=== PATIENT | female | born 2000 | race Caucasian/White ===

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

== ENCOUNTER 2019-07-27 08:02 | Outpatient (REF) | payer MEDICAID, SELFPAY | END 2019-07-27 08:22 | LOC: LBN 08:02 | PROVIDERS: Visit Provider Internal Medicine Gastroenterology | DX: K50.80 Crohn's disease of both small and large intestine without complications (principal) | CPT/HCPCS: 83993 ==

== ENCOUNTER 2019-11-20 13:39 | Emergency (ER) | payer MEDICAID, SELFPAY ==
[2019-11-20 13:44] VITALS: BP 140/90; PULSE 104; RESP 22; TEMP 37.3; O2SAT 100
--- NOTE | 2019-11-20 14:00 | RT.EKG_ITS ---
APPROVED REPORT Exam: Resting ECG Patient Location: E HR:77 bpm ECG Measurements Heart Rate 77 AXIS MT 147 P 41 QRSd 104 QRS 50 QT 353 T 0 QTc 401 Conclusion Sinus rhythm...normal P axis, V-rate 60- 99. T wave inversion lead III. Less than 1mm ST depression in aVF. No STEMI. I have reviewed and interpreted ECG and agree with software generated interpretation.
--- NOTE | 2019-11-20 14:05 | ED.GENADUL_ITS ---
Discharge Plan Disposition Patient Disposition: HOME Condition: Stable Discharge Details Clinical Impression: Cough Primary Care Provider: Candice,Local ED Provider: Gautam Yates Home Meds and New Rx's Prescriptions: Continued Cryselle (28) 0.3-30 mg-mcg Tablet 1 tab PO DAILY RF: 0 Remicade 100 mg Recon Soln 5 mg/kg IV Q8W RF: 0 albuterol sulfate [ProAir HFA] 90 mcg/actuation Hfa Aerosol Inhaler 2 puff INHALATION Q6H PRNRF: 0 Discharge Instructions Instructions: Acute Cough (ED) Additional Instructions: At this time your work-up in the ER was unremarkable. There is no clear indication for further evaluation such as chest CTA. Please continue using albuterol as directed. Watch for new or worsening symptoms and return to the ER for any concerns. Otherwise I recommend reaching out to your primary care provider later today or tomorrow for prompt outpatient reevaluation. Medical Decision Making 19-year-old female with history of asthma, seasonal allergies, Crohn's, presents to the ER for rule out of PE per her GI specialty team. Of note her heart rate upon arrival was 104 in triage but during my evaluation was in the 70s. She does take oral contraceptive, otherwise has no additional risk factors. She appears well, nontoxic, no acute distress. Respirations of 22, she is afebrile, O2 sats 100% on room air. The any pain or swelling in her legs. Clinically rather low suspicion for PE. She is able to speak in full sentences, O2 sats 100% on room air, lungs are clear to auscultation. No indication for any breathing treatments. Very well could be viral in nature, asthma exacerbation, seasonal allergies. Low suspicion for pneumonia. Given her chief complaint and being sent here for PE rule out will initiate IV access and obtain laboratory values including d-dimer, single troponin, chest x-ray and reassess. Work-up in the ER reveals WBC of 7.24 hemoglobin 12.3 hematocrit 37.6 platelet count 284. Electrolytes unremarkable. Creatinine 0.75 with a GFR greater than 60. Troponin less than 0.05. D-dimer 246. INR 1.1. Chest x-ray read by radiology is unremarkable. After work-up was completed I discussed findings with patient. There is no clear indication to move forward with a chest CTA for further rule out of PE given her work-up here in the ER including a d-dimer that is 246. Patient is relieved and has no additional questions or concerns. We discussed that her symptoms have only been present for the past 24 hours and certainly can change or worsen and she was encouraged to return to the ER for any concerns. Otherwise she will contact her primary care provider later today or tomorrow for prompt outpatient reevaluation and use her albuterol inhaler as directed. Medical Records Medical records reviewed: Yes I reviewed the patient's medical records. Lab Data Lab results reviewed: Yes I reviewed the patient's lab results. Lab results narrative: Laboratory Tests Range/Units 11/20/19 11/20/19 11/20/19 14:24 14:24 14:24 WBC (4.4-10.8) 10^3/uL 7.24 RBC (3.93-5.22) 10^6/uL 4.11 Hgb (11.2-15.7) g/dL 12.3 Hct (36.0-46.0) % 37.6 MCV (80-95) fL 91.5 MCH (27.0-33.0) pg 29.9 MCHC (32.0-36.0) % 32.7 RDW (11.7-14.6) % 12.5 Plt Count (130-400) 10^3/uL 284 MPV (8.0-11.0) fL 10.1 Immature Gran % 0.3 Neutrophils % 65.0 Lymphocytes % 25.7 Monocytes % 6.9 Eosinophils % 1.7 Basophils % 0.4 Nucleated RBC % % 0 Absolute Neutrophils (1.2-6.7) 10^3/uL 4.71 Absolute Lymphocytes (1.2-3.4) 10^3/uL 1.86 Absolute Monocytes (0.1-0.8) 10^3/uL 0.50 Absolute Eosinophils (0.0-0.7) 10^3/uL 0.12 Absolute Basophils (0.0-0.2) 10^3/uL 0.03 PT (9.3-11.0) sec 11.0 INR (0.9-1.1) 1.1 APTT (21.0-31.4) sec 24.5 D-Dimer (<500) ng/mlFEU 246 Sodium (136-145) mmol/L 139 Potassium (3.5-5.1) mmol/L 3.6 Chloride (98-107) mmol/L 105 Carbon Dioxide (21.0-32.0) mmol/L 25.3 Anion Gap (3-11) mmol/L 8.7 BUN (7-18) mg/dL 11 Creatinine (0.55-1.02) mg/dL 0.75 Estimated GFR/1.73 m2 (mL/min/1.73m2) >= 60.00 Glucose (74-106) mg/dL 95 Calcium (8.5-10.1) mg/dL 8.8 Magnesium (1.8-2.4) mg/dL 2.2 Total Bilirubin (0.2-1.0) mg/dL 0.4 AST (15-37) U/L 17 ALT (14-59) U/L 15 Alkaline Phosphatase (46-116) U/L 41 L Troponin I (<0.06) ng/mL < 0.05 Total Protein (6.4-8.2) g/dL 7.5 Albumin (3.4-5.0) g/dL 3.7 ECG Data Attestation: I personally reviewed and interpreted this ECG (s) as follows: Interpretation: Please see official report by Dr. De Anda. Sinus rhythm, ventricular of 77. No STEMI. HPI General Mode of arrival: ambulatory . Date/Time Provider Initiated Documentation: 11/20/19 13:40 . Limitations to Documentation: no limitations . Information obtained by: patient . HPI Narrative: This is a 19-year-old female with history of Crohn's disease, asthma, seasonal allergies, presenting with 24- hour history of mild dry cough and shortness of breath. She used her inhaler yesterday which seemed to help, inhaler did not help today. She denies any recent travel, sick contacts, pain or swelling in her legs. She contacted her GI specialist who recommended going to the ER to rule out potential PE. She is on control. She denies any headache, fever, neck pain, chest pain, productive cough, abdominal pain, nausea, vomiting, numbness, tingling, weakness, change in bowel or bladder function. Denies history of DVT or PE. She states that when she was first diagnosed with her Crohn's disease she had mild shortness of breath because she was anemic and the symptoms do feel similar. The patient had a negative COVID test yesterday that she required for school Related Data Home Medications Medication Instructions Recorded Confirmed Papito (28) 1 tab PO DAILY 03/23/18 05/08/18 Remicade 5 mg/kg IV Q8W 03/23/18 05/08/18 albuterol sulfate [ProAir HFA] 2 puff INHALATION Q6H PRN 05/08/18 11/20/19 Allergies Allergy/AdvReac Type Severity Reaction Status Date / Time No Known Allergies Allergy Unverified 11/20/19 13:48 General Stated Complaint: SOB ISAAC: 3 Review of Systems Constitutional Constitutional: Denies fatigue and Denies fever(s) ENT Ears, Nose, Mouth, and Throat: Denies neck pain and Denies sore throat Cardiovascular Cardiovascular: Denies chest pain and Reports dyspnea Respiratory Respiratory: Reports cough, Reports dyspnea and Denies wheezing Gastrointestinal Gastrointestinal: Denies abdominal pain, Denies nausea and Denies vomiting Genitourinary Genitourinary: Denies dysuria Musculoskeletal Musculoskeletal: Denies back pain, Denies neck pain, Denies numbness and Denies tingling Integumentary/Breasts Skin/Breast: Denies rash Neurologic Neurologic: Denies numbness and Denies tingling Psychiatric Psychiatric: Reports anxiety Endocrine Endocrine: Denies fatigue Allergic/Immunologic Allergic/Immunologic: Denies wheezing [facility] Medical History (Updated 11/20/19 @ 15:11 by LEXIE Ace) Asthma Crohn's disease Rheumatoid arthritis Surgical History No significant past surgical history Social History Smoking/Tobacco Use Status: Never Alcohol Intake: never Drug use: Never Substance use type: does not use Do you feel safe at home: Yes Do you feel safe in your relationship?: Yes Exam Const General: cooperative, healthy appearing, comfortable, no acute distress and anxious Orientation: alert and awake [facility] Head: normal to inspection, normocephalic and atraumatic Face and sinus: normal facial exam Mouth: moist mucous membranes Teeth and gingiva: dentition normal Throat: posterior oropharynx normal Eyes Conjunctivae: conjunctivae normal Sclera: sclerae normal Neck Neck: normal visual inspection, full ROM, trachea midline and supple Resp Effort & Inspection: normal respiratory effort and able to speak in complete sentences Auscultation: clear to auscultation bilaterally Cardio Rate: regular rate Rhythm: regular rhythm GI Palpation: soft and nontender Back/Spine/Pelvis Back: No back tenderness Skin General skin exam: no rashes or lesions noted Neuro General: patient alert, patient awake, moves all extremities and no focal motor deficits Speech: speech normal Gait: normal gait Motor: muscle tone normal throughout Sensory Exam: no sensory deficits noted Extrem General: normal to inspection, full ROM, capillary refill normal, no pedal edema and no calf tenderness Psych Appearance: grossly normal Mental Status: mental status grossly normal Course Vital Signs Vital signs: Vital Signs Temperature 37.3 C 11/20/19 13:44 Pulse 104 H 11/20/19 13:44 Respiratory Rate 11/20/19 13:44 Blood Pressure 140/90 11/20/19 13:44 Pulse Oximetry 100 11/20/19 13:44 Temperature 37.3 C 11/20/19 13:44 Temperature Source Skin 11/20/19 13:44 Pulse 104 H 11/20/19 13:44 Respiratory Rate 11/20/19 13:44 Respiratory Effort Non-Labored 11/20/19 13:47 Blood Pressure 140/90 11/20/19 13:44 Blood Pressure Position Sitting 11/20/19 13:44 Pulse Oximetry 100 11/20/19 13:44 Oxygen Delivery Method Room Air 11/20/19 13:44 Oxygen Flow Rate 0 11/20/19 13:44 Pain Level 0 11/20/19 13:44
[2019-11-20 14:30] LABS: Abs Immature Grans 0.02 10^3/uL (0.0-0.06); Absolute Basophil Count 0.03 10^3/uL (0.0-0.2); Absolute Eosinophil Count 0.12 10^3/uL (0.0-0.7); Absolute Lymphocyte Count 1.86 10^3/uL (1.2-3.4); Absolute Neutrophil Count 4.71 10^3/uL (1.2-6.7); Basophils % 0.4; Eosinophils % 1.7; HCT 37.6 % (36.0-46.0); HGB 12.3 g/dL (11.2-15.7); Immature Grans % 0.3; Lymphocytes % 25.7; MCH 29.9 pg (27.0-33.0); MCHC 32.7 % (32.0-36.0); MCV 91.5 fL (80-95); MPV 10.1 fL (8.0-11.0); Monocytes % 6.9; Nucleated RBC 0 %; Platelet Count 284 10^3/uL (130-400); RBC 4.11 10^6/uL (3.93-5.22); RDW 12.5 % (11.7-14.6); RDW-SD 41.6 fL; WBC 7.24 10^3/uL (4.4-10.8)
[2019-11-20 14:44] LABS: INR 1.1 (0.9-1.1); PTT Activated 24.5 sec (21.0-31.4)
[2019-11-20 14:46] LABS: ALT 15 U/L (14-59); AST 17 U/L (15-37); Albumin 3.7 g/dL (3.4-5.0); Alkaline Phosphatase 41 U/L (46-116); Anion Gap 8.7 mmol/L (3-11); BUN 11 mg/dL (7-18); Bilirubin, Total 0.4 mg/dL (0.2-1.0); CO2 25.3 mmol/L (21.0-32.0); CREATININE 0.75 mg/dL (0.55-1.02); Calcium 8.8 mg/dL (8.5-10.1); Chloride 105 mmol/L (98-107); Glucose 95 mg/dL (74-106); Magnesium 2.2 mg/dL (1.8-2.4); Potassium 3.6 mmol/L (3.5-5.1); Sodium 139 mmol/L (136-145); Total Protein 7.5 g/dL (6.4-8.2); Troponin I < 0.05 ng/mL (<0.06)
[2019-11-20 15:00] LABS: D-Dimer 246 ng/mlFEU (<500)
--- NOTE | 2019-11-20 15:05 | DI.RAD_ITS ---
EXAM: XR CHEST 2V PA LATERAL CLINICAL HISTORY: Cough, shortness of breath. COVID negative yester TECHNIQUE: 2D digital imaging was performed. COMPARISON: No exams were available for comparison FINDINGS: MEDIASTINUM: Normal. HEART: Normal. PULMONARY VASCULATURE: Normal. LUNGS: Clear. PLEURAL SPACE: No pleural effusion or pneumothorax. BONE:Mild S-type thoracolumbar scoliosis. OTHER FINDINGS:Normal. IMPRESSION: No acute pulmonary findings. DATA REPOSITORY: RADIATION DOSE DELIVERED:
[2019-11-20 15:15] VITALS: BP 105/74; PULSE 73; RESP 16; TEMP 36.7; O2SAT 100
== END 2019-11-20 15:22 | disposition home or self-care (01) ==
PROVIDERS: Emergency Provider Physician Assistant
DX: R05 Cough (principal); R06.02 Shortness of breath; J45.909 Unspecified asthma, uncomplicated
CPT/HCPCS: 36415; 80053; 81025; 93005; 99285; 71046; 83735; 84484; 85025; 85379; 85610; 85730; 93010; 99284

== ENCOUNTER 2020-04-29 10:22 | Outpatient (REF) | payer MEDICAID, SELFPAY ==
--- NOTE | 2020-04-29 09:25 | PAPFT_PTH ---
PATIENT: Farida Graham LOC: [facility] U#:[id number] AGE/SX: 20/F ROOM: RE04/29/[address]: Balbina Michele NP : 2000 BED: DIS: 04/29/2020 SPEC #: [id number] RECD: 04/29/20 13:01 STATUS: GALDINO MENDEZ #: [id number] TING: 04/29/20 09:[address]: Balbina Michele NP DEPT: [facility] Cytology RECD BY: Luz Taveras ENTERED: 04/29/20 13:01 SP TYPE: PAPFT FIORELLA DR: Candice Local Tissues: 1 - CX/ENDOCX FOR PAP SMEARS Procedures: PAP THIN PREP/U[facility] Screening Comments: [id number]
== END 2020-04-29 10:23 | disposition home or self-care (01) ==
LOC: LBN 10:22
PROVIDERS: Visit Provider Nurse Practitioner Women's Health
DX: Z12.4 Encounter for screening for malignant neoplasm of cervix (principal)
CPT/HCPCS: 88142

== ENCOUNTER 2020-05-19 03:51 | Outpatient (CLI) | payer MEDICAID, SELFPAY ==
[2020-05-19] MEDS: Albuterol HFA 18 GM 200 PUFF INH IH (08:48)
[2020-05-19] MEDS: Inhaler, Assist Device 1 EACH MC (08:48)
--- NOTE | 2020-05-26 16:22 | W.PFT ---
Date of service: 05/19/20 Time of Service: 08:03 Pulmonary Function Test Result Interpretation Spirometry: no obstruction, no bronchodilator response Impression normal spirometry Clinical Correlation therefore is recommended.
== END 2020-05-19 03:52 | disposition home or self-care (01) ==
LOC: RT 03:51
PROVIDERS: Visit Provider Physician Assistant
DX: R06.09 Other forms of dyspnea (principal); J45.909 Unspecified asthma, uncomplicated
CPT/HCPCS: 94060

== ENCOUNTER 2021-01-02 01:38 | Emergency (ER) | payer MEDICAID, SELFPAY ==
[2021-01-02 01:43] VITALS: BP 122/80; PULSE 110; RESP 18; TEMP 36.7; O2SAT 98
--- NOTE | 2021-01-02 01:43 | ED.GENADUL_ITS ---
Discharge Plan Disposition Patient Disposition: HOME Condition: Good Discharge Details Clinical Impression: COVID-19 ED Provider: Dax Costa Mustang Meds and New Rx's Prescriptions: Continued fexofenadine [Chelsey Allergy] 60 mg tablet 60 mg PO Q12H RF: 0 montelukast 10 mg tablet 10 mg PO DAILY RF: 0 Cryselle (28) 0.3-30 mg-mcg tablet 1 tab PO DAILY RF: 0 cholecalciferol (vitamin D3) 25 mcg (1,000 unit) capsule 25 mcg PO DAILY RF: 0 Remicade 100 mg recon soln 500 mg IV ONCE RF: 0 Discharge Instructions Instructions: Ondansetron (By mouth), COVID-19 (Coronavirus Disease 2019) (ED) Additional Instructions: You may use the provided ondansetron as needed for nausea/vomiting. Be sure to rest and drink plenty of fluid. Isolate for the required 10 days. Return to ED for chest pain, shortness of breath, persistent vomiting, worsening abdominal pain, confusion, other concerns. Discussed with your provider when you should receive next dose of Remicade. Medical Decision Making Young female who tested Covid positive despite vaccination presenting with concern due to nausea and vomiting. I do not think it is related to her Crohn's but more likely related to her infection. She is mildly tachycardic but otherwise looks well with normal saturations. She does qualify for MAB therapy given her treatment with Remicade for her Crohn's. We discussed this and she would like to receive the therapy. As the weekend is coming up, we will go ahead and treat in the ED. We will also give fluids, Zofran and check a BMP. test negative. BMP normal. Nausea better after Zofran. A little flushing monoclonal antibody. It was stopped and restarted at a slower rate. She did fine with this. We have held her 40-hour with no reaction. She will be discharged home with Zofran prepack. Continue to isolate for the required 10 days. Rest and drink plenty of fluids. Return to ED if any chest pain, shortness of breath, persistent vomiting, worsening abdominal pain, confusion, other concerns. Lab Data Lab results reviewed: Yes I reviewed the patient's lab results. HPI General Mode of arrival: ambulatory . Date/Time Provider Initiated Documentation: 01/02/21 01:41 . Limitations to Documentation: no limitations . Information obtained by: patient and RN notes reviewed . HPI Narrative: Patient presents to ED with chief complaint of vomiting and diarrhea. Patient developed URI type symptoms on Tuesday the . She tested positive for Covid despite being immunized. She has nasal congestion, cough. Today developed vomiting and diarrhea. This concerned her because she does have history of Crohn's disease. There has been no bloody diarrhea. She is not having significant abdominal pain. She is on Remicade. She denies fever, shortness of breath, chest pain. She gets anxious easily because of the persistent vomiting and diarrhea came in for evaluation. Related Data Home Medications Medication Instructions Recorded Confirmed cholecalciferol (vitamin D3) 25 25 mcg PO DAILY 04/29/20 01/02/21 mcg (1,000 unit) capsule fexofenadine 60 mg tablet 60 mg PO Q12H 04/29/20 01/02/21 infliximab 100 mg intravenous 500 mg IV ONCE ea 04/29/20 01/02/21 solution montelukast 10 mg tablet 10 mg PO DAILY 04/29/20 01/02/21 norgestrel 0.3 mg-ethinyl 1 tab PO DAILY 04/29/20 01/02/21 estradiol 30 mcg tablet Allergies Allergy/AdvReac Type Severity Reaction Status Date / Time No Known Allergies Allergy Verified 04/29/20 09:07 Review of Systems Narrative: As documented in HPI otherwise negative as below. Const: no fever, chills, weakness Resp: no SOB, pleuritic pain CV: no CP, diaphoresis, edema, syncope GI: no persistent abdominal pain Neuro: no headache, numbness, focal weakness, confusion PFSH Medical History Asthma Crohn's disease well controlled with remicade Depression History of blood transfusion 2016: 2' GI bleed which led to crohn's diagnosis Oral contraceptive use Surgical History History of colonoscopy History of endoscopy Social History Smoking/Tobacco Use Status: Never Smoking risk assessment performed?: Yes Alcohol Intake: never Drug use: Never Substance use type: does not use Do you feel safe at home: Yes Do you feel safe in your relationship?: Yes Female Reproductive History Menstrual Duration of menses: 6-7 days control method: pills History History 0 Para Hx # Term Pregnancies Multiple births Hx # Pregnancies Ectopic pregnancies AB induced Hx Number of Living Children AB spontaneous Exam Narrative Exam Narrative: Const: WDWN female in NAD. HEENT: NC/AT. Normal facial exam. Eyes: Normal conjunctiva and sclera. Neck: Supple. Trachea midline. Lungs: Normal respiratory effort. Lungs are clear. Cor: RRR without murmur/gallop. Good radial pulses. GI: Soft. NT/ND. No guarding or rebound. Neuro: A+O x 3. Normal speech, mentation, gait. Cranial nerves II - XII grossly intact. No gross motor or sensory deficit. Ext: No C/C/E. Skin: Warm and dry without rash.
[2021-01-02 02:38] VITALS: BP 120/80; PULSE 118; RESP 18; TEMP 36.7; O2SAT 98
[2021-01-02 02:41] LABS: Anion Gap 8.3 mmol/L (3-11); BUN 7 mg/dL (7-18); CO2 27.7 mmol/L (21.0-32.0); CREATININE 0.8 mg/dL (0.55-1.02); Chloride 103 mmol/L (98-107); Glucose 98 mg/dL (74-106); Potassium 3.9 mmol/L (3.5-5.1); Sodium 139 mmol/L (136-145)
[2021-01-02] MEDS: Ondansetron 4 MG/2 ML VIAL IVP (03:03)
--- NOTE | 2021-01-02 03:13 | SUR.PHASEII ---
pot rate decreased to 155 ml an hour from 310ml
--- NOTE | 2021-01-02 03:48 | SUR.PHASEI ---
pt monoclonial infusion completed [id number]
[2021-01-02 03:49] VITALS: BP 120/69; PULSE 99; RESP 18; TEMP 36.8; O2SAT 99
[2021-01-02] MEDS: Normal Saline 1,000 ML 1000 ML IV (04:00)
== END 2021-01-02 05:15 | disposition home or self-care (01) ==
LOC: ER 05:18
PROVIDERS: Emergency Provider Emergency Medicine
DX: U07.1 COVID-19 (principal); R05.1 Acute cough; R09.81 Nasal congestion; R11.2 Nausea with vomiting, unspecified
CPT/HCPCS: 36415; 80048; 81025; 96361; 96365; 96375; 99284; J2405

== ENCOUNTER 2021-01-31 12:59 | Outpatient (REF) | payer MEDICAID, SELFPAY ==
[2021-02-04 18:39] LABS: Calprotectin 26.7 mcg/g
== END 2021-01-31 13:00 | disposition home or self-care (01) ==
LOC: LBN 12:59
PROVIDERS: Visit Provider Internal Medicine Gastroenterology
DX: K50.80 Crohn's disease of both small and large intestine without complications (principal)
CPT/HCPCS: 83993

== ENCOUNTER 2021-03-05 16:09 | Outpatient (REF) | payer MEDICAID, SELFPAY ==
[2021-03-06 15:44] LABS: GC Result Negative (Negative)
[2021-03-06 16:25] LABS: Chlamydia Result Positive (Negative)
== END 2021-03-05 16:10 | disposition home or self-care (01) ==
LOC: LBN 16:09
PROVIDERS: Visit Provider Obstetrics & Gynecology
DX: R30.0 Dysuria (principal)
CPT/HCPCS: 87491; 87591

== ENCOUNTER 2021-05-15 20:28 | Outpatient (CLI) | payer MEDICAID, SELFPAY ==
[2021-05-15 16:27] LABS: Abs Immature Grans 0.02 10^3/uL (0.0-0.06); Absolute Basophil Count 0.05 10^3/uL (0.0-0.2); Absolute Eosinophil Count 0.26 10^3/uL (0.0-0.7); Absolute Lymphocyte Count 3.06 10^3/uL (1.2-3.4); Absolute Monocyte Count 0.81 10^3/uL (0.1-0.8); Absolute Neutrophil Count 5.02 10^3/uL (1.2-6.7); Basophils % 0.5; Eosinophils % 2.8; HCT 41.9 % (36.0-46.0); HGB 13.6 g/dL (11.2-15.7); Immature Grans % 0.2; Lymphocytes % 33.2; MCH 29.2 pg (27.0-33.0); MCHC 32.5 % (32.0-36.0); MCV 90.1 fL (80-95); MPV 10.1 fL (8.0-11.0); Monocytes % 8.8; Neutrophils % 54.5; Nucleated RBC 0 %; Platelet Count 327 10^3/uL (130-400); RBC 4.65 10^6/uL (3.93-5.22); RDW 12.7 % (11.7-14.6); RDW-SD 42.1 fL; WBC 9.22 10^3/uL (4.4-10.8)
[2021-05-15 16:39] LABS: ALT 19 U/L (14-59); AST 16 U/L (15-37); Alkaline Phosphatase 53 U/L (46-116); Bilirubin, Direct < 0.1 mg/dL (0.0-0.2); Bilirubin, Total 0.2 mg/dL (0.2-1.0); C-Reactive Protein 0.19 mg/dL (0.0-0.3); Total Protein 8.4 g/dL (6.4-8.2)
== END 2021-05-15 20:29 | disposition home or self-care (01) ==
LOC: LBO 20:30
PROVIDERS: PCP Internal Medicine Gastroenterology; Visit Provider Family Medicine
DX: K50.80 Crohn's disease of both small and large intestine without complications (principal)
CPT/HCPCS: 36415; 80076; 85025; 86140

== ENCOUNTER 2021-05-18 08:31 | Outpatient (REF) | payer MEDICAID, SELFPAY ==
[2021-05-21 15:09] LABS: Calprotectin 81.9 mcg/g
== END 2021-05-18 08:32 | disposition home or self-care (01) ==
LOC: LBN 08:31
PROVIDERS: PCP Internal Medicine Gastroenterology; Visit Provider Internal Medicine Gastroenterology
DX: K50.80 Crohn's disease of both small and large intestine without complications (principal)
CPT/HCPCS: 83993

== ENCOUNTER 2021-05-20 02:28 | Outpatient (CLI) | payer MEDICAID, SELFPAY | END 2021-05-20 02:29 | disposition home or self-care (01) | LOC: LBO 02:28 | PROVIDERS: PCP Internal Medicine Gastroenterology; Visit Provider Internal Medicine Gastroenterology ==

== ENCOUNTER 2021-06-17 02:56 | Outpatient (CLI) | payer MEDICAID, SELFPAY ==
[2021-06-17 11:35] LABS: Abs Immature Grans 0.03 10^3/uL (0.0-0.06); Absolute Basophil Count 0.06 10^3/uL (0.0-0.2); Absolute Eosinophil Count 0.39 10^3/uL (0.0-0.7); Absolute Lymphocyte Count 2.07 10^3/uL (1.2-3.4); Absolute Monocyte Count 0.75 10^3/uL (0.1-0.8); Absolute Neutrophil Count 4.93 10^3/uL (1.2-6.7); Basophils % 0.7; Eosinophils % 4.7; HGB 13.1 g/dL (11.2-15.7); Immature Grans % 0.4; Lymphocytes % 25.2; MCH 29.6 pg (27.0-33.0); MCV 92.8 fL (80-95); MPV 9.6 fL (8.0-11.0); Monocytes % 9.1; Neutrophils % 59.9; Platelet Count 304 10^3/uL (130-400); RBC 4.42 10^6/uL (3.93-5.22); RDW 12.6 % (11.7-14.6); RDW-SD 43.5 fL; WBC 8.23 10^3/uL (4.4-10.8)
[2021-06-17 12:38] LABS: ALT 19 U/L (14-59); AST 17 U/L (15-37); Alkaline Phosphatase 65 U/L (46-116); Bilirubin, Direct 0.1 mg/dL (0.0-0.2); Bilirubin, Total 0.3 mg/dL (0.2-1.0); C-Reactive Protein 0.15 mg/dL (0.0-0.3); Total Protein 7.8 g/dL (6.4-8.2)
== END 2021-06-17 02:57 | disposition home or self-care (01) ==
LOC: LBO 02:56
PROVIDERS: PCP Internal Medicine Gastroenterology; Visit Provider Internal Medicine Gastroenterology
DX: K50.80 Crohn's disease of both small and large intestine without complications (principal)
CPT/HCPCS: 36415; 80076; 85025; 86140

== ENCOUNTER 2021-06-18 11:13 | Outpatient (CLI) | payer MEDICAID, SELFPAY ==
[2021-06-18 15:04] LABS: Abs Immature Grans 0.02 10^3/uL (0.0-0.06); Absolute Basophil Count 0.04 10^3/uL (0.0-0.2); Absolute Eosinophil Count 0.24 10^3/uL (0.0-0.7); Absolute Lymphocyte Count 2.37 10^3/uL (1.2-3.4); Absolute Monocyte Count 0.64 10^3/uL (0.1-0.8); Absolute Neutrophil Count 4.48 10^3/uL (1.2-6.7); Basophils % 0.5; Eosinophils % 3.1; HCT 40.6 % (36.0-46.0); HGB 12.7 g/dL (11.2-15.7); Immature Grans % 0.3; Lymphocytes % 30.4; MCHC 31.3 % (32.0-36.0); MCV 92.7 fL (80-95); MPV 9.7 fL (8.0-11.0); Monocytes % 8.2; Neutrophils % 57.5; Platelet Count 304 10^3/uL (130-400); RBC 4.38 10^6/uL (3.93-5.22); RDW 12.5 % (11.7-14.6); RDW-SD 42.9 fL; WBC 7.79 10^3/uL (4.4-10.8)
[2021-06-23 11:15] LABS: SS-B (La) Ab, IgG 2.5 Units (<20.0)
== END 2021-06-18 11:14 | disposition home or self-care (01) ==
LOC: LBO 11:13
PROVIDERS: PCP Internal Medicine Gastroenterology; Visit Provider Obstetrics & Gynecology
DX: K50.90 Crohn's disease, unspecified, without complications (principal); M06.9 Rheumatoid arthritis, unspecified
CPT/HCPCS: 36415; 85025; 86235

== ENCOUNTER 2021-07-15 02:21 | Outpatient (CLI) | payer MEDICAID, SELFPAY ==
[2021-07-15 12:13] LABS: Abs Immature Grans 0.03 10^3/uL (0.0-0.06); Absolute Basophil Count 0.05 10^3/uL (0.0-0.2); Absolute Eosinophil Count 0.44 10^3/uL (0.0-0.7); Absolute Lymphocyte Count 2.27 10^3/uL (1.2-3.4); Absolute Monocyte Count 0.89 10^3/uL (0.1-0.8); Absolute Neutrophil Count 4.87 10^3/uL (1.2-6.7); Basophils % 0.6; Eosinophils % 5.1; HCT 38.4 % (36.0-46.0); HGB 12.3 g/dL (11.2-15.7); Immature Grans % 0.4; Lymphocytes % 26.5; MCH 29.3 pg (27.0-33.0); MCV 91 fL (80-95); MPV 9.8 fL (8.0-11.0); Monocytes % 10.4; Platelet Count 291 10^3/uL (130-400); RDW 12.7 % (11.7-14.6); RDW-SD 42.3 fL; WBC 8.55 10^3/uL (4.4-10.8)
[2021-07-15 13:24] LABS: ALT 31 U/L (14-59); AST 20 U/L (15-37); Alkaline Phosphatase 56 U/L (46-116); Bilirubin, Direct 0.1 mg/dL (0.0-0.2); Bilirubin, Total 0.4 mg/dL (0.2-1.0); C-Reactive Protein 0.17 mg/dL (0.0-0.3); Total Protein 7.8 g/dL (6.4-8.2)
== END 2021-07-15 02:22 | disposition home or self-care (01) ==
LOC: LBO 02:21
PROVIDERS: PCP Internal Medicine Gastroenterology; Visit Provider Internal Medicine Gastroenterology
DX: K50.80 Crohn's disease of both small and large intestine without complications (principal)
CPT/HCPCS: 36415; 80076; 85025; 86140

== ENCOUNTER 2021-07-31 16:40 | Outpatient (REF) | payer MEDICAID, SELFPAY ==
[2021-08-03 14:56] LABS: Chlamydia Result Negative (Negative); GC Result Negative (Negative)
== END 2021-07-31 16:41 | disposition home or self-care (01) ==
LOC: LBN 16:40
PROVIDERS: PCP Internal Medicine Gastroenterology; Visit Provider Obstetrics & Gynecology Gynecology
DX: R30.9 Painful micturition, unspecified (principal); N94.89 Other specified conditions associated with female genital organs and menstrual cycle
CPT/HCPCS: 87491; 87591; 87086

== ENCOUNTER 2021-08-12 02:20 | Outpatient (CLI) | payer MEDICAID, SELFPAY ==
[2021-08-12 11:50] LABS: Abs Immature Grans 0.02 10^3/uL (0.0-0.06); Absolute Basophil Count 0.03 10^3/uL (0.0-0.2); Absolute Eosinophil Count 0.47 10^3/uL (0.0-0.7); Absolute Lymphocyte Count 1.92 10^3/uL (1.2-3.4); Absolute Monocyte Count 0.75 10^3/uL (0.1-0.8); Absolute Neutrophil Count 4.41 10^3/uL (1.2-6.7); Basophils % 0.4; Eosinophils % 6.2; HCT 34.6 % (36.0-46.0); HGB 11.5 g/dL (11.2-15.7); Immature Grans % 0.3; Lymphocytes % 25.3; MCH 29.9 pg (27.0-33.0); MCHC 33.2 % (32.0-36.0); MCV 90 fL (80-95); MPV 9.7 fL (8.0-11.0); Monocytes % 9.9; Neutrophils % 57.9; Platelet Count 253 10^3/uL (130-400); RBC 3.84 10^6/uL (3.93-5.22); RDW 12.5 % (11.7-14.6); RDW-SD 41.5 fL
[2021-08-12 12:18] LABS: ALT 38 U/L (14-59); AST 22 U/L (15-37); Albumin 3.7 g/dL (3.4-5.0); Alkaline Phosphatase 47 U/L (46-116); Bilirubin, Direct 0.1 mg/dL (0.0-0.2); Bilirubin, Total 0.3 mg/dL (0.2-1.0); C-Reactive Protein 0.34 mg/dL (0.0-0.3); Total Protein 7.4 g/dL (6.4-8.2)
== END 2021-08-12 02:21 | disposition home or self-care (01) ==
LOC: LBO 02:20
PROVIDERS: PCP Nurse Practitioner; Visit Provider Internal Medicine Gastroenterology
DX: K50.80 Crohn's disease of both small and large intestine without complications (principal)
CPT/HCPCS: 36415; 80076; 85025; 86140

== ENCOUNTER 2021-08-15 14:07 | Emergency (ER) | payer MEDICAID, SELFPAY ==
[2021-08-15 14:19] VITALS: BP 121/74; PULSE 97; RESP 16; TEMP 37.1; O2SAT 100
--- NOTE | 2021-08-15 15:06 | ED.GENADUL_ITS ---
Discharge Plan Disposition Patient Disposition: HOME Condition: Stable Discharge Details Clinical Impression: Threatened miscarriage in early Primary Care Provider: Carrie Trejo ED Provider: Serafin Rice Home Meds and New Rx's Prescriptions: Continued fexofenadine [Chelsey Allergy] 60 mg tablet 60 mg PO Q12H cholecalciferol (vitamin D3) 25 mcg (1,000 unit) capsule 25 mcg PO DAILY Remicade 100 mg recon soln 500 mg IV ONCE folic acid 1 mg tablet 4 mg PO DAILY Qty: 240 3RF prenat.vits,sophia,ojd-qgih-hjnyw Tablet 1 tab PO DAILY Qty: 90 3RF albuterol sulfate [ProAir HFA] 90 mcg/actuation Hfa Aerosol Inhaler 2 puff INHALATION Q6H PRN No Action loratadine [Allergy Relief (loratadine)] 10 mg tablet 10 mg PO DAILY sertraline 100 mg tablet 100 mg PO DAILY Discharge Instructions Instructions: Threatened Miscarriage (ED) Additional Instructions: Please refrain from sexual activity and no exertional activities until cleared by your OB. Please contact your OB to arrange follow-up. Return to the ER immediately for any worsening or new concerning symptoms. For future reference, your blood type is O+. [facility]: [facility] [Provider Group] Discharge Data Discharge Date/Time-TO BE ENTERED AT DEPARTURE: 08/15/21 17:30 Medical Decision Making 21-year-old at 6 weeks 5 days, had IUP on pelvic ultrasound earlier this week, here with spotting this morning postcoitally, also with some mild cramping in route to the hospital. No continued bleeding.. Bedside transabdominal pelvic POCUS was performed by me. No free fluid in the pelvis. Gestational sac with IUP is present. Question flicker heartbeat. Consider need for RhoGAM. Type and screen performed and patient is O+. Recommended she penetrate outpatient follow-up with obstetrics. I recommended she refrain from sexual activity until cleared. I called and spoke with Dr. Huertas, on-call OB, discussed ED presentation course and she agrees with treatment plan. HPI General Mode of arrival: ambulatory . Date/Time Provider Initiated Documentation: 08/15/21 14:28 . Limitations to Documentation: no limitations . Information obtained by: patient . HPI Narrative: 21-year-old at 6 weeks 5 days by ultrasound earlier this week, here with vaginal spotting this morning. Patient notes that she had sexual intercourse with her significant other this morning and then noticed spotting in her underwear. No continuous bleeding. Symptoms mild with no modifiers. She subsequently has gone urination and did not notice any blood. She does she may have had some subtle abdominal cramping in route to the hospital. Patient denies trauma. She is on vitamin. Related Data Home Medications Medication Instructions Recorded Confirmed albuterol sulfate 90 mcg/actuation 2 puff inhalation Q6H PRN 05/08/18 08/18/21 aerosol inhaler (ProAir HFA) cholecalciferol (vitamin D3) 25 25 mcg PO DAILY 04/29/20 08/18/21 mcg (1,000 unit) capsule fexofenadine 60 mg tablet (Chelsey 60 mg PO Q12H 04/29/20 08/15/21 Allergy) infliximab 100 mg intravenous 500 mg IV ONCE 04/29/20 08/18/21 solution (Remicade) folic acid 1 mg tablet 4 mg PO DAILY #240 tabs 06/17/21 08/18/21 prenat.vits,sophia,bdx-sjac-pqwlk 1 tab PO DAILY #90 tabs 06/17/21 08/18/21 sertraline 100 mg tablet 100 mg PO DAILY 08/17/21 08/18/21 loratadine 10 mg tablet (Allergy 10 mg PO DAILY 08/18/21 08/18/21 Relief (loratadine)) Previous Rx's Medication Instructions Recorded folic acid 1 mg tablet 4 mg PO DAILY #240 tabs 06/17/21 prenat.vits,sophia,dwc-qthx-qmaku 1 tab PO DAILY #90 tabs 06/17/21 Allergies Allergy/AdvReac Type Severity Reaction Status Date / Time pineapple Allergy Intermediate mouth Unverified 08/18/21 14:58 tingling General Stated Complaint: JV [employer]ALL [employer]ACH ISAAC: 3 Review of Systems All systems reviewed & are unremarkable except as noted in HPI and below Constitutional Constitutional: Denies fever(s) Gastrointestinal Gastrointestinal: Denies abdominal pain Genitourinary Genitourinary: Reports as per HPI PFSH All Active Problems (Updated 08/18/21 @ 15:02 by Carrie Trejo NP) Rheumatoid arthritis (Chronic) Threatened miscarriage in early (Acute) Positive test (Acute) Vaginal burning (Acute) Delayed menses (Acute) Crohn's disease (Chronic) well controlled with remicade Depression (Chronic) Asthma (Chronic) History of blood transfusion (Acute) 2016: 2' GI bleed which led to crohn's diagnosis COVID-19 (Acute) Chlamydia infection (Acute) Urinary pain (Acute) Asthma (Chronic) Allergic rhinitis due to allergen (Acute) Post-nasal drip (Acute) Chronic rhinitis (Acute) Medical History Crohn's disease Rheumatoid arthritis Surgical History History of colonoscopy History of endoscopy No significant past surgical history Family History (Updated 08/18/21 @ 15:21 by Carrie Trejo NP) Maternal Grandmother Cancer Pancreatic Father Diabetes Maternal Grandfather Heart disease Paternal Grandmother No problems noted. Other Crohn's disease Social History (Updated 08/17/21 @ 09:35 by Marilin Dorantes LPN) Smoking/Tobacco Use Status: Never Smoking risk assessment performed?: Yes Alcohol Intake: current Alcohol Intake frequency: a few times a week Drug use: Occasionally Substance use type: marijuana Adopted: No Caregiver/Support person: No Foster care: No Household members: significant other Housing: apartment Number of Children: 0 Communication Needs: None Education Level: college Details: bachelor's degree Do you need help understanding health information?: Never current occupation: [employer] Pets and animals: Yes Pets and animals: cat(s) and hamster(s) Sexually active: Yes Do you think of yourself as: straight/heterosexual Current gender identity: female What is your relationship status?: living with partner How often do you talk on the phone with friends or family?: three or more times per week How often do you get together with friends or relatives?: once per week Panel score (0-1 are the most socially isolated patients): 2 What type of physical activity do you participate in: walking Duration: 30-45 minutes/day Frequency: 1-2 times per week Cesia/Confucianism: None Special cesia needs: No Seatbelt use: sometimes Helmet use: Yes Helmet use: sometimes Drive intox 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 Do you feel safe at home: Yes Do you feel safe in your relationship?: Yes Female Reproductive History Menstrual Duration of menses: 6-7 days control method: pills History History 1 Para Hx # Term Pregnancies Multiple births Hx # Pregnancies Ectopic pregnancies AB induced Hx Number of Living Children AB spontaneous Exam Const General: cooperative and no acute distress HENMT Mouth: moist mucous membranes Eyes Conjunctivae: normal conjunctivae Sclera: normal sclerae Neck Neck: trachea midline and supple Resp Auscultation: clear to auscultation bilaterally, no rales, no rhonchi and no wheezes Cardio Rate: regular rate and not tachycardic Rhythm: regular rhythm GI Palpation: soft, not firm, no guarding, no masses, not rigid and nontender Skin General skin exam: no rashes or lesions noted Neuro General: patient alert and patient awake Extrem General: no edema Psych Appearance: grossly normal Mental Status: mental status grossly normal Course Vital Signs Vital signs: Vital Signs Temperature 37.1 C 08/15/21 14:19 Pulse 97 H 08/15/21 14:19 Respiratory Rate 16 08/15/21 14:19 Blood Pressure 121/74 08/15/21 14:19 Pulse Oximetry 100 08/15/21 14:19 Temperature 37.1 C 08/15/21 14:19 Temperature Source Skin 08/15/21 14:19 Pulse 97 H 08/15/21 14:19 Respiratory Rate 16 08/15/21 14:19 Respiratory Effort Non-Labored 08/15/21 14:35 Blood Pressure 121/74 08/15/21 14:19 Blood Pressure Position Sitting 08/15/21 14:19 Pulse Oximetry 100 08/15/21 14:19 Oxygen Delivery Method Room Air 08/15/21 14:19 Oxygen Flow Rate 0 08/15/21 14:19 Pain Level 0 08/15/21 14:35
[2021-08-15 16:36] VITALS: BP 114/71; PULSE 87; RESP 14; TEMP 37.1; O2SAT 100
[2021-08-15 17:30] VITALS: BP 114/71; PULSE 87; RESP 14; TEMP 37.1; O2SAT 100
== END 2021-08-15 17:30 | disposition home or self-care (01) ==
PROVIDERS: Emergency Provider Student in an Organized Health Care Education/Training Program; PCP Nurse Practitioner
DX: O20.0 Threatened abortion (principal); Z3A.01 Less than 8 weeks gestation of pregnancy
CPT/HCPCS: 86850; 86900; 86901; 99284; 99283

== ENCOUNTER 2021-08-20 11:58 | Outpatient (REF) | payer MEDICAID, SELFPAY ==
[2021-08-25 15:53] LABS: Calprotectin 56.4 mcg/g
== END 2021-08-20 11:59 | disposition home or self-care (01) ==
LOC: LBN 11:58
PROVIDERS: PCP Nurse Practitioner; Visit Provider Internal Medicine Gastroenterology
DX: K50.80 Crohn's disease of both small and large intestine without complications (principal)
CPT/HCPCS: 83993

== ENCOUNTER 2021-08-25 14:59 | Outpatient (REF) | payer MEDICAID, SELFPAY ==
[2021-08-25 14:20] LABS: Source Nasal/Nares
[2021-08-25 15:27] LABS: COVID-19 PCR Negative (Negative)
== END 2021-08-25 15:00 | disposition home or self-care (01) ==
LOC: LBN 14:59
PROVIDERS: PCP Nurse Practitioner; Visit Provider Obstetrics & Gynecology Gynecology
DX: Z20.822 Contact with and (suspected) exposure to COVID-19 (principal); Z01.818 Encounter for other preprocedural examination
CPT/HCPCS: 87635

== ENCOUNTER 2021-08-26 10:18 | Day surgery (SDC) | payer MEDICAID, SELFPAY ==
[2021-08-26 10:20] VITALS: BP 121/89; PULSE 105; RESP 18; TEMP 36.6; O2SAT 100
--- NOTE | 2021-08-26 10:35 | W.PM.HP.N ---
Date of service: 08/25/21 Time of Service: 10:35 Assessment and Plan Assessment and plan (1) Missed : Status: Acute Assessment and plan: Informed consent was obtained. Patient was counseled regarding the risk of puncture of uterus with subsequent bleeding and need for possible laparotomy;the risk of infection and injury to surrounding structures including bowel, bladder, and blood vessels. Her questions were answered. She was instructed to be n.p.o. after midnight. We will obtain preop labs prior to surgery. Patient is Rh+. History of Present Illness History of Present Illness Chief Complaint: Missed . Narrative: Patient is a 21yo G1 female diagnosed by transvaginal office ultrasound with missed AB at approximately 8 weeks. She had a positive urine test approximately 4 weeks ago.? She did not know that she is at that point.? Her last menstrual period after coming off of oral contraceptives was 06/16/2021.? She had an initial OB ultrasound that showed early gestation IUP. She developed mild cramping with episodes of light brown vaginal spotting last week and yesterday. Both transabdominal and transvaginal ultrasound were performed. Transvaginal ultrasound showed an enlarged yolk sac within the gestational sac no evidence of a pole or cardiac activity. The uterus appears normal as does the adnexa there is no evidence of free pelvic fluid. Patient and her partner the SAB and treatment options were discussed. I recommended a D&C based on patient's estimated stational age and the unsure nature of when she would pass the tissue. She is agreeable to the plan. Review of Systems All systems reviewed & are unremarkable except as noted in HPI and below Constitutional Constitutional: Denies fever(s) Cardiovascular Cardiovascular: Reports system reviewed and no additional complaints, except as documented Respiratory Respiratory: Reports system reviewed and no additional complaints, except as documented Gastrointestinal Gastrointestinal: Reports system reviewed and no additional complaints, except as documented (Crohn's symptoms are currently stable) Genitourinary Genitourinary: Reports abnormal vaginal bleeding and Reports other (Mild uterine cramping) Neurologic Neurologic: Reports system reviewed and no additional complaints, except as documented Psychiatric Psychiatric: Reports system reviewed and no additional complaints, except as documented PFSH All Active Problems (Updated 08/26/21 @ 10:45 by Cass Garrett MD) Missed (Acute) Pre-op exam (Acute) Rheumatoid arthritis (Chronic) Positive test (Acute) Vaginal burning (Acute) Delayed menses (Acute) Crohn's disease (Chronic) well controlled with remicade Depression (Chronic) Asthma (Chronic) History of blood transfusion (Acute) 2016: 2' GI bleed which led to crohn's diagnosis COVID-19 (Acute) Chlamydia infection (Acute) Urinary pain (Acute) Asthma (Chronic) Allergic rhinitis due to allergen (Acute) Post-nasal drip (Acute) Chronic rhinitis (Acute) Medical History Crohn's disease Rheumatoid arthritis Surgical History History of colonoscopy History of endoscopy No significant past surgical history Family History (Updated 08/18/21 @ 15:21 by Carrie Trejo NP) Maternal Grandmother Cancer Pancreatic Father Diabetes Maternal Grandfather Heart disease Paternal Grandmother No problems noted. Other Crohn's disease Social History (Updated 08/17/21 @ 09:35 by Marilin Dorantes LPN) Smoking/Tobacco Use Status: Former Tobacco Use Smoking risk assessment performed?: Yes Alcohol Intake: former Drug use: Never Substance use type: does not use, former substance user and marijuana Details: Stopped using marijuana when she found out she was prenant same as vaping Adopted: No Caregiver/Support person: No Foster care: No Household members: significant other Housing: apartment Number of Children: 0 Communication Needs: None Education Level: college Details: bachelor's degree Do you need help understanding health information?: Never 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 Pets and animals: Yes Pets and animals: cat(s) and hamster(s) Sexually active: Yes Do you think of yourself as: straight/heterosexual Current gender identity: female What is your relationship status?: living with partner How often do you talk on the phone with friends or family?: three or more times per week How often do you get together with friends or relatives?: once per week Panel score (0-1 are the most socially isolated patients): 2 What type of physical activity do you participate in: walking Duration: 30-45 minutes/day Frequency: 1-2 times per week Cesia/Restorationism: None Special cesia needs: No Seatbelt use: sometimes Helmet use: Yes Helmet use: sometimes Drive intox 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 driver engineer: No Do you feel safe at home: Yes Do you feel safe in your relationship?: Yes Female Reproductive History Menstrual Duration of menses: 6-7 days control method: pills History History 1 Para 0 Hx # Term Pregnancies 0 Multiple births 0 Hx # Pregnancies 0 Ectopic pregnancies 0 AB induced 0 Hx Number of Living Children 0 AB spontaneous 0 Meds Allergies and Home Medications Allergies Allergy/AdvReac Type Severity Reaction Status Date / Time pineapple Allergy Intermediate mouth Unverified 08/26/21 09:30 tingling Home Medications Medication Instructions Recorded Confirmed Type albuterol sulfate 90 mcg/actuation 2 puff inhalation Q6H PRN 05/08/18 08/25/21 History aerosol inhaler (ProAir HFA) cholecalciferol (vitamin D3) 25 25 mcg PO DAILY 04/29/20 08/26/21 History mcg (1,000 unit) capsule fexofenadine 60 mg tablet (Chelsey 60 mg PO Q12H 04/29/20 08/26/21 History Allergy) infliximab 100 mg intravenous 500 mg IV ONCE 04/29/20 08/26/21 History solution (Remicade) folic acid 1 mg tablet 4 mg PO DAILY #240 tabs 06/17/21 08/26/21 Rx prenat.vits,sophia,jkf-cbxr-xeapp 1 tab PO DAILY #90 tabs 06/17/21 08/26/21 Rx sertraline 100 mg tablet 100 mg PO DAILY 08/17/21 08/26/21 History loratadine 10 mg tablet (Allergy 10 mg PO DAILY 08/18/21 08/26/21 History Relief (loratadine)) Exam Const General: no acute distress (Tearful regarding the events of today) Nutritional Appearance: average body habitus Orientation: alert, awake and oriented x3 Neck Neck: normal visual inspection Resp Effort & Inspection: normal respiratory effort Auscultation: clear to auscultation bilaterally Cardio Rate: regular rate Rhythm: regular rhythm General: deferred Skin General skin exam: no rashes or lesions noted Extrem General: normal to inspection and full ROM Psych Appearance: grossly normal Mental Status: mental status grossly normal (Tearful. Asking appropriate questions regarding the loss.)
[2021-08-26] MEDS: Lactated Ringers 1,000 ML 125 ML IV (10:48)
[2021-08-26 10:49] LABS: HCT 37.9 % (36.0-46.0); HGB 12.4 g/dL (11.2-15.7); MCH 29.2 pg (27.0-33.0); MCHC 32.7 % (32.0-36.0); MCV 89 fL (80-95); MPV 9.4 fL (8.0-11.0); Platelet Count 274 10^3/uL (130-400); RBC 4.25 10^6/uL (3.93-5.22); RDW 12.6 % (11.7-14.6); RDW-SD 40.8 fL; WBC 7.93 10^3/uL (4.4-10.8)
[2021-08-26] MEDS: DOXYCYCLINE 100 MG in Normal Saline 100 ML IVPB (10:54)
--- NOTE | 2021-08-26 10:56 | ANES.PREOP_ITS ---
General Info Date of Service Date Performed: 08/26/21 Height: 5 ft 3 in Weight: 66.9 kg Body Mass Index (BMI): 26.1 Surgical Procedure: Operation Date: 08/26/21 13:25 Proposed Procedure Side Surgeon p Suction Completion D&C Cass Garrett MD Meds Allergies and Home Medications Allergies Allergy/AdvReac Type Severity Reaction Status Date / Time pineapple Allergy Intermediate mouth Unverified 08/26/21 09:30 tingling Home Medication Medication Instructions Recorded albuterol sulfate 90 mcg/actuation 2 puff inhalation Q6H PRN 05/08/18 aerosol inhaler (ProAir HFA) cholecalciferol (vitamin D3) 25 25 mcg PO DAILY 04/29/20 mcg (1,000 unit) capsule fexofenadine 60 mg tablet (Chelsey 60 mg PO Q12H 04/29/20 Allergy) infliximab 100 mg intravenous 500 mg IV ONCE 04/29/20 solution (Remicade) folic acid 1 mg tablet 4 mg PO DAILY #240 tabs 06/17/21 prenat.vits,sophia,ate-qiqi-dwhkp 1 tab PO DAILY #90 tabs 06/17/21 sertraline 100 mg tablet 100 mg PO DAILY 08/17/21 loratadine 10 mg tablet (Allergy 10 mg PO DAILY 08/18/21 Relief (loratadine)) Current Visit Medications: Current Medications Generic Name Dose Route Start Last Admin Trade Name Freq PRN Reason Stop Dose Admin Ringer's Solution 1,000 mls @ 125 mls/hr 08/26/21 06:00 08/26/21 10:48 IV 09/25/21 23:59 125 mls/hr INFUSION STEVEN Administration Doxycycline Hyclate 100 mg/ 100 mls @ 100 mls/hr 08/26/21 10:30 08/26/21 10:54 Sodium Chloride IVPB 08/26/21 16:00 100 mls/hr PREOP STEVEN Administration IV Miscellaneous Supplies 1 each 08/26/21 06:00 Iv Access IV 09/25/21 23:59 DIRECTED STEVEN Sodium Chloride 0 ml 08/26/21 06:00 Normal Saline Flush 10 Ml Syr IV 09/25/21 23:59 PRN PRN Sodium Chloride 0 ml 08/26/21 06:00 Normal Saline 10 Ml Vial IJ 09/25/21 23:59 DIRECTED PRN Sterile Water 0 ml 08/26/21 06:00 Water,Injection,Sterile 10 Ml Vial IJ 09/25/21 23:59 DIRECTED PRN PFSH Active Problems Active Problems: Problem Status Onset Code Missed O02.1 Pre-op exam Z01.818 Rheumatoid arthritis M06.9 Positive test Z32.01 Vaginal burning N94.9 Delayed menses N91.0 Crohn's disease K50.90 Depression F32.9 Asthma J45.909 History of blood transfusion Z92.89 COVID-19 U07.1 Chlamydia infection A74.9 Urinary pain R30.9 Asthma J45.909 Allergic rhinitis due to allergen J30.9 Post-nasal drip R09.82 Chronic rhinitis J31.0 Medical History Medical History Crohn's disease Rheumatoid arthritis Surgical History Surgical History History of colonoscopy History of endoscopy No significant past surgical history Tobacco Smoking/Tobacco Use Status: Former Tobacco Use Alcohol Alcohol Intake: former Substance Use Substance use: Never Substance use type: does not use, former substance user and marijuana Details: Stopped using marijuana when she found out she was prenant same as vaping Prental History History 1 Para 0 Hx # Term Pregnancies 0 Multiple births 0 Hx # Pregnancies 0 Ectopic pregnancies 0 AB induced 0 Hx Number of Living Children 0 AB spontaneous 0 Vital Signs and Lab Results Vital Signs Most Recent Vital Signs in EMR: Most Recent Vital Signs Temp Pulse Resp BP Pulse Ox 36.6 C 105 H 18 121/89 100 08/26/21 10:20 08/26/21 10:20 08/26/21 10:20 08/26/21 10:20 08/26/21 10:20 Lab Results Result Diagrams: 08/26/21 10:35 Blood Type / Crossmatch: Patient ABO/Rh O Positive 08/15/21 Antibody Screen NEGATIVE 08/15/21 Complete Blood Count: White Blood Count 7.93 10^3/uL (4.4-10.8) 08/26/21 10:35 Red Blood Count 4.25 10^6/uL (3.93-5.22) 08/26/21 10:35 Hemoglobin 12.4 g/dL (11.2-15.7) 08/26/21 10:35 Hematocrit 37.9 % (36.0-46.0) 08/26/21 10:35 Platelet Count 274 10^3/uL (130-400) 08/26/21 10:35 Complete Metabolic Panel: Albumin 3.7 g/dL (3.4-5.0) 08/12/21 11:34 C-Reactive Protein 0.34 mg/dL (0.0-0.3) H 08/12/21 11:34 Liver Function Panel: Alanine Aminotransferase (ALT/SGPT) 38 U/L (14-59) 08/12/21 11: 34 Aspartate Amino Transf (AST/SGOT) 22 U/L (15-37) 08/12/21 11:34 Coagulation Panel: No Data to Display Cardiac Panel: No Data to Display Arterial Blood Gas: No Data to Display Venous Blood Gas: No Data to Display Pancreas Panel: No Data to Display Thyroid Panel: 2 No Data to Display Infectious Disease: Coronavirus (COVID-19)(PCR) Negative (Negative) 08/25/21 14:10 Coronavirus 2019 Source Nasal/Nares 08/25/21 14:10 Neisseria gonorrhoeae DNA Probe Negative (Negative) 07/31/21 1 5:30 Blood Cultures: No Data to Display Toxicology Panel: No Data to Display Panel: No Data to Display Imaging and Studies Imaging and Studies Study information below may be from another EMR and interpreted by another provider. Please see original notes in EMR for more complete details. EKG Summary: 11/20/19 Conclusion Sinus rhythm...normal P axis, V-rate 60- 99. Anesthesia Assessment and Plan Anesthesia History Personal History: No History of Anesthesia Complications Family History: No Family History of Anesthesia Complications Exercise Tolerance Exercise Tolerance: Metabolic Equivalents>4 Pertinent Negatives Pertinent Negatives: No Symptoms of GERD, No Major Cardiovascular Symptoms or Complaints, No Major Pulmonary Symptoms or Complaints and No History of CVA/TIA Cardiac & Pulmonary Exam Cardiac Exam: Normal S1/S2 Heart Sounds Pulmonary Exam: Clear Bilateral Breath Sounds Implantable Cardiac Device Does patient have a Pacemaker or an ICD?: No Airway Exam Known Difficult Airway: No Mallampati Class: 3 Mouth Opening: Narrow (< 3cm) Thyromental Distance: Greater than 3 cm Neck Range of Motion: Full ROM Neck Circumference: Normal Teeth Condition: Normal Dentition ASA Classification ASA Score: ASA 2 Emergency Case?: No NPO Status NPO Status: NPO Clears >2 hours, Solids >8 hours Status Status: Other ( not viable per ultrasound) Anesthesia Plan Resuscitation Status: Full Code Anesthesia Technique: General Anesthesia Airway Planned: Natural Airway Monitors Used: Standard Monitors
[2021-08-26 11:15] VITALS: BMI 26.1
[2021-08-26] MEDS: Silver Nitrate Stick 1 EACH (12:42)
[2021-08-26 12:54] VITALS: BP 108/79; PULSE 83; RESP 16; TEMP 36.5; O2SAT 100
--- NOTE | 2021-08-26 13:00 | POCSPONT_PTH ---
PATIENT: Farida Graham LOC: [facility] U#:[id number] AGE/SX: 21/F ROOM: RE08/26/[address]: Cass Garrett : 2000 BED: DIS: 08/26/2021 SPEC #: [id number] RECD: 08/26/21 17:55 STATUS: GALDINO RERuth #: [id number] TING: 08/26/21 13:[address]: Cass Garrett DEPT: Surgical Specimen RECD BY: Luz Taveras ENTERED: 08/26/21 17:57 SP TYPE: ROSE BARROS DR: Carrie Trejo APRN Tissues: 1 - ,SPONTANEOUS Procedures: GROSS AND MICRO LEVEL 4 Comments: [id number]
--- NOTE | 2021-08-26 13:02 | PDOC.DSDIS_ITS ---
Discharge Plan Disposition Patient Disposition: HOME Condition: Good Discharge Details Reason For Visit: D&C Attending Provider: Cass Garrett Primary Care Provider: Carrie Trejo Home Meds and New Rx's Prescriptions: No Action fexofenadine [Chelsey Allergy] 60 mg tablet 60 mg PO Q12H cholecalciferol (vitamin D3) 25 mcg (1,000 unit) capsule 25 mcg PO DAILY Remicade 100 mg recon soln 500 mg IV ONCE loratadine [Allergy Relief (loratadine)] 10 mg tablet 10 mg PO DAILY folic acid 1 mg tablet 4 mg PO DAILY Qty: 240 3RF prenat.vits,sophia,ooo-rgsz-azgmw Tablet 1 tab PO DAILY Qty: 90 3RF sertraline 100 mg tablet 100 mg PO DAILY albuterol sulfate [ProAir HFA] 90 mcg/actuation Hfa Aerosol Inhaler 2 puff INHALATION Q6H PRN Discharge Instructions Additional Instructions: Make an appointment with Dr. Garrett for 2 weeks. At that time we will follow- up regarding pathology results. You may use a tampon and you may swim this weekend. You may have sexual relations but use a condom. Call the [facility] at eight [phone] with any concerns or questions. Stand Alone Forms: DSU Post D&C Miscarriage Activity:: Activity as Tolerated Diet:: As Tolerated Discharge Orders Discharge Orders: Discharge Order (Routine); Ordered 08/26/21 Ordered By: Cass Garrett DS: Diagnosis Discharge Diagnosis (1) Missed : Start date: 08/26/21 Start time: 13:02 Status: Acute
--- NOTE | 2021-08-26 13:24 | W.ANESPOSTOP ---
Postoperative Evaluation Date, Time and Location Date Performed: 08/26/21 Time Performed: 12:56 Patient Location: Day Surgery Unit Vital Signs Most Recent Imported Vital Signs: Most Recent Vital Signs Temp Pulse Resp BP Pulse Ox 36.5 C 83 16 108/79 100 08/26/21 12:54 08/26/21 12:54 08/26/21 12:54 08/26/21 12:54 08/26/21 12:54 Pain Score Most Recent Pain Score: Most Recent Pain Score Pain Level 0 08/26/21 12:54 Assessment Mental Status: Awake (Alert & Oriented to Patient Baseline) Airway and Respiratory Function: Patent airway with normal (patient baseline) respiratory exam Cardiovascular Function: Hemodynamically Stable Hydration Status: Adequately Hydrated Nausea & Vomiting: No Nausea or Vomiting Pain: Pt. Denies Any Pain Peripheral Nerve Block: Patient did not receive a nerve block
[2021-08-26 13:25] VITALS: BP 110/70; PULSE 75; RESP 17; TEMP 36.4; O2SAT 100
--- NOTE | 2021-08-27 07:16 | W.PM.OP ---
Date of service: 08/27/21 Time of Service: 07:17 Operative Note Operative Note DATE OF PROCEDURE: 08/26/21 PRE-OP DIAGNOSIS: missed at 8w EGA POST-OP DIAGNOSIS: same PROCEDURE: Cervical dilation and suction evacuation of uterine contents SURGEON: Cass Garrett Refer to Anesthesia Record ESTIMATED BLOOD LOSS: 5 PATHOLOGY: other (Products of conception to pathology) COMPLICATIONS: None Patient was transported to: same day Patient's condition: stable Indications: 21-year-old female who was found to have a gestational sac without a pole at the time of a dating ultrasound on 08/25/2021. Patient had previous ultrasound approximately 2 weeks prior with a pole. Findings: Small amount of dark blood-tinged mucus at the loss. Uterus sounded to 8 cm. Moderate amount of products of conception retrieved Procedure Description: Patient was taken to the operating room where she was placed in the dorsal supine position and general anesthesia was administered without difficulty. IV Doxycycline was administered while in the Same Day Unit and completed upon arrival in the OR. She was placed in the dorsal lithotomy position in yellowfin stirrups in a neurologically neutral position. She was prepped, and draped in the usual sterile fashion. Surgical timeout was performed. [place] speculum was placed into the vagina and the anterior lip of the cervix was infiltrated with 2 cc of 0.50% Marcaine without epinephrine. A single-tooth tenaculum was then used to grasp and hold the anterior lip of the cervix. A paracervical block was performed with 4 cc of 0.05% Marcaine injected into the 4 and 8:00 paracervical spaces respectively. The uterus was sounded to 10 cm. The cervix was then sequentially dilated to a maximum of 16 Spencer and a 8 mm curved suction cannula was attached to suction and the level of suction tested. The cannula was inserted into the uterine cavity attached to suction and sequentially all 4 quadrants of the uterine cavity were suction curetted until minimal tissue returned. The suction cannula was then removed a banjo curette was used to perform a gentle curetting of all 4 quadrants of the uterine cavity. Minimal tissue was returned. A final insertion of the suction cannula and suction curetting of all 4 quadrants was performed with no tissue returned. All instruments were removed and the tenaculum site was treated successfully with Silver Nitrate. Patient was awakened and transported to recovery area in stable condition. All sponge lap needle counts correct x2
== END 2021-08-26 13:50 | disposition home or self-care (01) ==
PROVIDERS: PCP Nurse Practitioner; Visit Provider Obstetrics & Gynecology Gynecology
PROC: (CPT 59841; principal; 2021-08-26 13:15)
DX: O02.1 Missed abortion (principal); Z3A.08 8 weeks gestation of pregnancy
CPT/HCPCS: 59820; 85027; 86850; 86900; 86901; 88305; J1100; J1885; J2250; J2405

== ENCOUNTER 2021-09-15 02:17 | Outpatient (CLI) | payer MEDICAID, SELFPAY ==
[2021-09-15 22:33] LABS: HCG Beta,Quant Preg 16 mIU/mL (<5)
== END 2021-09-15 02:18 | disposition home or self-care (01) ==
LOC: LBO 02:17
PROVIDERS: PCP Nurse Practitioner; Visit Provider Obstetrics & Gynecology Gynecology
DX: O02.1 Missed abortion (principal)
CPT/HCPCS: 36415; 84702

== ENCOUNTER 2021-09-29 02:50 | Outpatient (RCR) | payer MEDICAID, SELFPAY ==
[2021-09-29] MEDS: Normal Saline Flush 10 ML SYR IVP (11:37)
[2021-09-29] MEDS: methylPREDNISolone SUCC 40 MG VIAL IVP (11:38)
[2021-09-29] MEDS: Famotidine 20 MG/2 ML VIAL IVP (11:38)
[2021-09-29 11:52] LABS: HCT 38.1 % (36.0-46.0); HGB 12.4 g/dL (11.2-15.7); MCHC 32.5 % (32.0-36.0); MCV 92 fL (80-95); MPV 10.2 fL (8.0-11.0); Platelet Count 275 10^3/uL (130-400); RBC 4.14 10^6/uL (3.93-5.22); RDW 12.8 % (11.7-14.6); RDW-SD 43.5 fL; WBC 8.78 10^3/uL (4.4-10.8)
[2021-09-29 12:05] LABS: ALT 21 U/L (14-59); AST 20 U/L (15-37); Alkaline Phosphatase 61 U/L (46-116); Bilirubin, Direct 0.1 mg/dL (0.0-0.2); Bilirubin, Total 0.3 mg/dL (0.2-1.0); C-Reactive Protein 0.26 mg/dL (0.0-0.3); Total Protein 8.2 g/dL (6.4-8.2)
[2021-09-29 12:12] VITALS: BP 108/77; PULSE 72; RESP 18; TEMP 36.9; O2SAT 100
[2021-09-29 12:25] VITALS: BP 115/82; PULSE 76; RESP 16; TEMP 36.7; O2SAT 100
[2021-09-29 12:40] VITALS: BP 115/80; PULSE 74; RESP 16; TEMP 36.7; O2SAT 100
[2021-09-29 12:55] VITALS: BP 121/81; PULSE 76; RESP 16; TEMP 36.5; O2SAT 100
[2021-09-29 13:25] VITALS: BP 110/74; PULSE 74; RESP 16; TEMP 36.5; O2SAT 100
[2021-09-29 13:55] VITALS: BP 123/80; PULSE 78; RESP 16; TEMP 36.5; O2SAT 99
== END 2021-10-28 23:59 | disposition home or self-care (01) ==
LOC: INF 02:50
PROVIDERS: Internal Medicine Gastroenterology; PCP Nurse Practitioner; Visit Provider Internal Medicine
DX: K50.90 Crohn's disease, unspecified, without complications (principal)
CPT/HCPCS: 80076; 85027; 96365; 96366; 96413; 96415; 86140; J1745

== ENCOUNTER 2021-10-02 01:56 | Outpatient (CLI) | payer MEDICAID, SELFPAY ==
[2021-10-02 11:54] LABS: ESR 7 mm/hr (0-20)
[2021-10-05 15:50] LABS: ANA Interpretation Negative (Negative)
[2021-10-06 13:15] LABS: SS-B (La) Ab, IgG 1.6 Units (<20.0)
[2021-10-06 15:38] LABS: SS-A Antibody 2.1 Units (<20.0)
== END 2021-10-02 01:57 | disposition home or self-care (01) ==
LOC: LBO 01:56
PROVIDERS: PCP Nurse Practitioner; Visit Provider Nurse Practitioner
DX: H04.123 Dry eye syndrome of bilateral lacrimal glands (principal); K50.90 Crohn's disease, unspecified, without complications
CPT/HCPCS: 36415; 85652; 86038; 86235

== ENCOUNTER 2021-11-10 03:14 | Outpatient (RCR) | payer MEDICAID, SELFPAY ==
[2021-10-29 00:12] VITALS: BP 123/80; PULSE 78; RESP 16; TEMP 36.5
[2021-11-10] VITALS (7 sets, daily range): BP systolic 102–117; BP diastolic 69–80; PULSE 66–97; RESP 16; TEMP 36.5–36.8; O2SAT 98–100
[2021-11-10] MEDS: Famotidine 20 MG/2 ML VIAL IVP (08:37)
[2021-11-10] MEDS: methylPREDNISolone SUCC 40 MG VIAL IVP (08:37)
[2021-11-10] MEDS: Normal Saline Flush 10 ML SYR IVP (11:38)
== END 2021-11-27 23:59 | disposition home or self-care (01) ==
LOC: INF 03:14
PROVIDERS: PCP Nurse Practitioner; Visit Provider Internal Medicine
DX: K50.90 Crohn's disease, unspecified, without complications (principal)
CPT/HCPCS: 96365; 96366; 96374; 96375; 96413; 96415; J1745

== ENCOUNTER 2021-12-22 02:17 | Outpatient (RCR) | payer MEDICAID, SELFPAY ==
[2021-11-28 00:08] VITALS: BP 117/80; PULSE 97; RESP 16; TEMP 36.7
[2021-12-22] VITALS (7 sets, daily range): BP systolic 87–111; BP diastolic 53–74; PULSE 78–98; RESP 16–17; TEMP 36.3–36.8; O2SAT 97–100
[2021-12-22] MEDS: methylPREDNISolone SUCC 40 MG VIAL IV (08:09)
[2021-12-22] MEDS: Normal Saline Flush 10 ML SYR IVP (08:10)
[2021-12-22] MEDS: Famotidine 20 MG/2 ML VIAL IV (08:10)
[2021-12-22 08:31] LABS: Abs Immature Grans 0.02 10^3/uL (0.0-0.06); Absolute Basophil Count 0.04 10^3/uL (0.0-0.2); Absolute Eosinophil Count 0.51 10^3/uL (0.0-0.7); Absolute Lymphocyte Count 1.77 10^3/uL (1.2-3.4); Absolute Monocyte Count 0.64 10^3/uL (0.1-0.8); Absolute Neutrophil Count 3.84 10^3/uL (1.2-6.7); Basophils % 0.6; Eosinophils % 7.5; HCT 39.6 % (36.0-46.0); Immature Grans % 0.3; MCH 29.9 pg (27.0-33.0); MCHC 32.8 % (32.0-36.0); MCV 91 fL (80-95); MPV 10.2 fL (8.0-11.0); Monocytes % 9.4; Neutrophils % 56.2; Platelet Count 278 10^3/uL (130-400); RBC 4.35 10^6/uL (3.93-5.22); RDW 12.5 % (11.7-14.6); RDW-SD 41.5 fL; WBC 6.82 10^3/uL (4.4-10.8)
[2021-12-22 08:49] LABS: ALT 16 U/L (14-59); AST 13 U/L (15-37); Albumin 4.1 g/dL (3.4-5.0); Alkaline Phosphatase 56 U/L (46-116); Bilirubin, Direct 0.1 mg/dL (0.0-0.2); Bilirubin, Total 0.3 mg/dL (0.2-1.0); Total Protein 8.3 g/dL (6.4-8.2)
== END 2021-12-28 23:59 | disposition home or self-care (01) ==
LOC: INF 02:17
PROVIDERS: PCP Nurse Practitioner; Visit Provider Internal Medicine
DX: K50.90 Crohn's disease, unspecified, without complications (principal)
CPT/HCPCS: 36415; 80076; 96365; 96413; 85025; 86140; J1745

== ENCOUNTER 2022-02-01 03:36 | Outpatient (RCR) | payer MEDICAID, SELFPAY ==
[2021-12-29 00:04] VITALS: BP 109/74; PULSE 78; RESP 16; TEMP 36.8
[2022-02-01] VITALS (7 sets, daily range): BP systolic 102–114; BP diastolic 68–76; PULSE 76–97; RESP 16; TEMP 36.8–37.1; O2SAT 99–100
[2022-02-01] MEDS: methylPREDNISolone SUCC 40 MG VIAL IV (08:06)
[2022-02-01] MEDS: Famotidine 20 MG/2 ML VIAL IV (08:07)
[2022-02-01] MEDS: Normal Saline Flush 10 ML SYR IVP (11:06)
== END 2022-02-27 23:59 | disposition home or self-care (01) ==
LOC: INF 03:36
PROVIDERS: PCP Nurse Practitioner; Visit Provider Nurse Practitioner Acute Care
DX: K50.90 Crohn's disease, unspecified, without complications (principal)
CPT/HCPCS: 96365; 96366; 96374; 96375; 96413; 96415; J1745

== ENCOUNTER 2022-03-15 02:37 | Outpatient (RCR) | payer MEDICAID, SELFPAY ==
[2022-02-28 00:14] VITALS: BP 111/75; PULSE 80; RESP 16; TEMP 36.9
[2022-03-15 08:20] LABS: HCT 38.8 % (36.0-46.0); HGB 12.9 g/dL (11.2-15.7); MCH 29.9 pg (27.0-33.0); MCHC 33.2 % (32.0-36.0); MCV 90 fL (80-95); MPV 10.2 fL (8.0-11.0); Platelet Count 255 10^3/uL (130-400); RBC 4.32 10^6/uL (3.93-5.22); RDW 12.4 % (11.7-14.6); RDW-SD 41.1 fL
[2022-03-15 08:30] VITALS: BP 111/76; PULSE 84; RESP 17; TEMP 36.9; O2SAT 100
[2022-03-15] MEDS: Famotidine 20 MG/2 ML VIAL IVP (08:43)
[2022-03-15] MEDS: methylPREDNISolone SUCC 40 MG VIAL IVP (08:43)
[2022-03-15] MEDS: Normal Saline Flush 10 ML SYR IVP (08:43)
[2022-03-15 08:44] LABS: ALT 14 U/L (14-59); AST 17 U/L (15-37); Alkaline Phosphatase 54 U/L (46-116); Bilirubin, Direct 0.1 mg/dL (0.0-0.2); Bilirubin, Total 0.5 mg/dL (0.2-1.0); Total Protein 8.2 g/dL (6.4-8.2)
[2022-03-15 09:11] VITALS: BP 97/67; PULSE 84; RESP 16; TEMP 36.7; O2SAT 100
[2022-03-15 09:25] VITALS: BP 112/75; PULSE 89; RESP 17; TEMP 36.7; O2SAT 100
[2022-03-15 09:40] VITALS: BP 117/82; PULSE 91; RESP 17; TEMP 36.5; O2SAT 100
[2022-03-15 10:10] VITALS: BP 113/73; PULSE 81; RESP 17; TEMP 36.7; O2SAT 100
[2022-03-15 10:40] VITALS: BP 119/73; PULSE 96; RESP 17; TEMP 36.6; O2SAT 100
== END 2022-03-30 23:59 | disposition home or self-care (01) ==
LOC: INF 02:37
PROVIDERS: Internal Medicine Gastroenterology; PCP Nurse Practitioner; Visit Provider Nurse Practitioner Acute Care
DX: K50.90 Crohn's disease, unspecified, without complications (principal)
CPT/HCPCS: 36415; 80076; 85027; 96365; 96366; 96413; 96415; 86140; J1745

== ENCOUNTER 2022-04-01 10:14 | Outpatient (CLI) | payer MEDICAID, SELFPAY ==
[2022-04-01 09:39] LABS: HCG Quant, Pregnancy 10647 mIU/mL (1-3)
== END 2022-04-01 10:15 | disposition home or self-care (01) ==
LOC: LBO 10:15
PROVIDERS: PCP Nurse Practitioner; Visit Provider Obstetrics & Gynecology
DX: Z34.91 Encounter for supervision of normal pregnancy, unspecified, first trimester (principal)
CPT/HCPCS: 36415; 84702

== ENCOUNTER 2022-04-08 01:45 | Outpatient (CLI) | payer MEDICAID, SELFPAY ==
[2022-04-08 13:52] LABS: HCG Quant, Pregnancy 49895 mIU/mL (1-3)
== END 2022-04-08 01:46 | disposition home or self-care (01) ==
LOC: LBO 01:45
PROVIDERS: PCP Nurse Practitioner; Visit Provider Obstetrics & Gynecology
DX: Z34.91 Encounter for supervision of normal pregnancy, unspecified, first trimester (principal)
CPT/HCPCS: 36415; 84702

== ENCOUNTER 2022-04-26 02:04 | Outpatient (RCR) | payer MEDICAID, SELFPAY ==
[2022-03-31 00:15] VITALS: BP 119/73; PULSE 96; RESP 17; TEMP 36.6
[2022-04-26] VITALS (7 sets, daily range): BP systolic 89–108; BP diastolic 51–71; PULSE 76–99; RESP 16; TEMP 36.4–36.7; O2SAT 98–100
[2022-04-26] MEDS: methylPREDNISolone SUCC 40 MG VIAL IVP (08:05)
[2022-04-26] MEDS: Famotidine 20 MG/2 ML VIAL IVP (08:11)
[2022-04-26] MEDS: Normal Saline Flush 10 ML SYR IVP (08:12)
[2022-04-26 08:50] LABS: HCT 37.5 % (36.0-46.0); HGB 12.4 g/dL (11.2-15.7); MCH 29.7 pg (27.0-33.0); MCHC 33.1 % (32.0-36.0); MCV 90 fL (80-95); MPV 10.2 fL (8.0-11.0); Platelet Count 277 10^3/uL (130-400); RBC 4.18 10^6/uL (3.93-5.22); RDW 12.7 % (11.7-14.6); RDW-SD 41.5 fL; WBC 8.93 10^3/uL (4.4-10.8)
[2022-04-26 09:11] LABS: ALT 17 U/L (14-59); AST 15 U/L (15-37); Albumin 3.7 g/dL (3.4-5.0); Alkaline Phosphatase 39 U/L (46-116); Bilirubin, Direct 0.1 mg/dL (0.0-0.2); Bilirubin, Total 0.3 mg/dL (0.2-1.0); C-Reactive Protein 0.74 mg/dL (0.0-0.3); Total Protein 7.9 g/dL (6.4-8.2)
== END 2022-04-27 23:59 | disposition home or self-care (01) ==
LOC: INF 02:04
PROVIDERS: PCP Nurse Practitioner; Visit Provider Nurse Practitioner Acute Care
DX: K50.90 Crohn's disease, unspecified, without complications (principal)
CPT/HCPCS: 36415; 80076; 85027; 96365; 96366; 96374; 96375; 96413; 96415; 86140; J1745

== ENCOUNTER 2022-05-11 02:20 | Outpatient (CLI) | payer MEDICAID, SELFPAY ==
[2022-05-11 15:47] LABS: Panorama Kit Sent via Fed Ex
[2022-05-11 15:53] LABS: Abs Immature Grans 0.04 10^3/uL (0.0-0.06); Absolute Basophil Count 0.03 10^3/uL (0.0-0.2); Absolute Lymphocyte Count 1.83 10^3/uL (1.2-3.4); Absolute Neutrophil Count 6.42 10^3/uL (1.2-6.7); Basophils % 0.3; Eosinophils % 3.3; HGB 11.2 g/dL (11.2-15.7); Immature Grans % 0.4; Lymphocytes % 19.8; MCH 30.1 pg (27.0-33.0); MCHC 32.9 % (32.0-36.0); MCV 91 fL (80-95); MPV 9.8 fL (8.0-11.0); Monocytes % 6.5; Neutrophils % 69.7; Platelet Count 242 10^3/uL (130-400); RBC 3.72 10^6/uL (3.93-5.22); RDW 12.9 % (11.7-14.6); RDW-SD 42.4 fL; WBC 9.22 10^3/uL (4.4-10.8)
[2022-05-11 16:27] LABS: TSH (W/Ref FT4) 0.97 uIU/mL (0.36-3.74)
[2022-05-13 09:59] LABS: Hepatitis B Surface Ag Negative (Negative)
[2022-05-13 10:11] LABS: Hepatitis C Ab w Rflx HCV PCR Negative (Negative)
[2022-05-13 10:32] LABS: Varicella IgG Antibody Positive (See Note)
[2022-05-13 10:33] LABS: HIV-1/2 Ag & Ab Screen Negative (Negative)
[2022-05-13 10:35] LABS: Rubella IgG Ab (UVM) Negative (See Note)
[2022-05-13 23:00] LABS: Syphilis IgG w/Reflex Nonreactive (Nonreactive)
[2022-05-17 08:31] LABS: Specimen WB Whole Blood
[2022-05-26 16:33] LABS: Result Summary NEGATIVE; Specimen WB Whole Blood
== END 2022-05-11 02:21 | disposition home or self-care (01) ==
LOC: LBO 02:20
PROVIDERS: PCP Nurse Practitioner; Visit Provider Advanced Practice Midwife
DX: Z34.91 Encounter for supervision of normal pregnancy, unspecified, first trimester (principal); Z36.89 Encounter for other specified antenatal screening; Z3A.11 11 weeks gestation of pregnancy
CPT/HCPCS: 36415; 81220; 81222; 81329; 86787; 86803; 86850; 86900; 86901; 87340; 87389; 84443; 85025; 86762; 86780

== ENCOUNTER 2022-05-11 16:14 | Outpatient (REF) | payer MEDICAID, SELFPAY ==
[2022-05-11 18:56] LABS: *AMPHETAMINES SCREEN URINE Negative (Negative); *BARBITURATES SCREEN URINE Negative (Negative); *BENZODIAZEPINES SCREEN URINE Negative (Negative); Cannabinoids THC Negative (Negative); Cocaine Screen,Urine Negative (Negative); METHADONE URINE SCREEN Negative (Negative); OPIATES URINE SCREEN Negative (Negative)
[2022-05-11 18:59] LABS: Tricyclic Antidepressants Negative (Negative)
[2022-05-13 14:26] LABS: Chlamydia Result Negative (Negative); GC Result Negative (Negative)
[2022-05-17 02:53] LABS: Buprenorphine Negative ng/mL (Cutoff: 5.0); Norbuprenorphine Negative ng/mL (Cutoff: 2.5)
== END 2022-05-11 16:15 | disposition home or self-care (01) ==
LOC: LBN 16:14
PROVIDERS: PCP Nurse Practitioner; Visit Provider Advanced Practice Midwife
DX: Z34.91 Encounter for supervision of normal pregnancy, unspecified, first trimester (principal); Z3A.11 11 weeks gestation of pregnancy; Z11.3 Encounter for screening for infections with a predominantly sexual mode of transmission
CPT/HCPCS: 80307; 80348; 87491; 87591; 87086

== ENCOUNTER 2022-06-07 00:53 | Outpatient (RCR) | payer MEDICAID, SELFPAY ==
[2022-04-28 00:07] VITALS: BP 105/68; PULSE 99; RESP 16; TEMP 36.4
[2022-06-07] VITALS (7 sets, daily range): BP systolic 91–116; BP diastolic 62–76; PULSE 89–110; RESP 16–17; TEMP 36.1–36.7; O2SAT 100
[2022-06-07] MEDS: methylPREDNISolone SUCC 40 MG VIAL IVP (08:02)
[2022-06-07] MEDS: Famotidine 20 MG/2 ML VIAL IVP (08:02)
[2022-06-07] MEDS: Normal Saline Flush 10 ML SYR IVP (08:03)
== END 2022-06-27 23:59 | disposition home or self-care (01) ==
LOC: INF 00:53
PROVIDERS: PCP Nurse Practitioner; Visit Provider Nurse Practitioner Acute Care
DX: K50.90 Crohn's disease, unspecified, without complications (principal)
CPT/HCPCS: 96365; 96366; 96374; 96375; 96413; 96415; J1745

== ENCOUNTER 2022-06-10 12:30 | Emergency (ER) | payer MEDICAID, SELFPAY ==
[2022-06-10 12:34] VITALS: BP 108/77; PULSE 102; RESP 16; TEMP 37; O2SAT 100
--- NOTE | 2022-06-10 13:30 | DI.US_ITS ---
Exam(s) US ABDOMEN LIMITED EXAM: US ABDOMEN LIMITED CLINICAL HISTORY: RUQ abd Pain, Eval Gallbladder TECHNIQUE: Ultrasound abdomen performed using standard protocol. COMPARISON: US POCUS EXAM from 05/03/2022 US US OB F/U FACIAL/LVOT/RVOT from 06/10/2022 FINDINGS: LIVER: Normal size. Normalechogenicity. No focal liver lesions are seen.. GALLBLADDER: No evidence of cholelithiasis. No evidence of wall thickening. No pericholecystic fluid identified. LE'S SIGN: Negative. BILIARY SYSTEM: No intrahepatic or extrahepatic biliary ductal dilation. RIGHT KIDNEY: Normal size. No evidence of renal calculi. Mild hydronephrosis. No suspicious renal ma ss. No cyst identified. PANCREAS: Normal where visualized. ABDOMINAL AORTA AND IVC: Visualized portions normal caliber. ASCITES: None seen. IMPRESSION: Mild right hydronephrosis, not unusual during . Normal gallbladder. DATA REPOSITORY:
--- NOTE | 2022-06-10 13:30 | DI.US_ITS ---
Exam(s) US OB F/U FACIAL/LVOT/RVOT EXAM: US OB F/U FACIAL/LVOT/RVOT CLINICAL HISTORY: Abdominal Cramping, 15 weeks , Diarrhea. COMPARISON: US POCUS EXAM from 05/03/2022 US US ABDOMEN LIMITED from 06/10/2022 TECHNIQUE: Transabdominal obstetrical ultrasound performed. FINDINGS: Sonographic images demonstrate a single intrauterine gestation in variable position. heart rate motion is Dopplered at: 150 bpm. nose/lips: Unremarkable. Placenta: Posterior, grade 0. No evidence of previa. No evidence of abruption. Cervical length 4.5 cm. Amniotic fluid is visually within normal limits. IMPRESSION: Single live intrauterine gestation. Placenta appears normal. DATA REPOSITORY:
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
[2022-06-10] MEDS: Normal Saline 1,000 ML 1000 ML IV (13:53)
[2022-06-10 13:54] LABS: Bilirubin Negative (Negative); Blood Negative (Negative); Clarity Clear (Clear); Glucose Negative (Negative); Ketones Negative (Negative); Leukocyte Esterase Negative (Negative); Nitrite Negative (Negative); Urobilinogen 0.2 mg/dL (Up to 0.2); pH 6.5 (5-8)
[2022-06-10 14:01] LABS: Abs Immature Grans 0.03 10^3/uL (0.0-0.06); Absolute Basophil Count 0.01 10^3/uL (0.0-0.2); Absolute Lymphocyte Count 1.18 10^3/uL (1.2-3.4); Absolute Monocyte Count 0.63 10^3/uL (0.1-0.8); Absolute Neutrophil Count 3.32 10^3/uL (1.2-6.7); Basophils % 0.2; Eosinophils % 1.9; HCT 36.3 % (36.0-46.0); HGB 12.1 g/dL (11.2-15.7); Immature Grans % 0.6; Lymphocytes % 22.4; MCH 29.8 pg (27.0-33.0); MCHC 33.3 % (32.0-36.0); MCV 89 fL (80-95); MPV 9.7 fL (8.0-11.0); Neutrophils % 62.9; Platelet Count 242 10^3/uL (130-400); RBC 4.06 10^6/uL (3.93-5.22); RDW-SD 42.5 fL; WBC 5.27 10^3/uL (4.4-10.8)
[2022-06-10 14:11] LABS: ALT 41 U/L (14-59); AST 30 U/L (15-37); Albumin 3.2 g/dL (3.4-5.0); Alkaline Phosphatase 42 U/L (46-116); Anion Gap 7.1 mmol/L (3-11); BUN 5 mg/dL (7-18); Bilirubin, Total 0.3 mg/dL (0.2-1.0); CO2 24.9 mmol/L (21.0-32.0); CREATININE 0.5 mg/dL (0.55-1.02); Calcium 8.8 mg/dL (8.5-10.1); Chloride 104 mmol/L (98-107); Estimated GFR 135.07 (mL/min/1.73m2); Glucose 80 mg/dL (74-106); Lipase 26 U/L (16-77); Magnesium 1.8 mg/dL (1.8-2.4); Potassium 3.5 mmol/L (3.5-5.1); Sodium 136 mmol/L (136-145); Total Protein 7.2 g/dL (6.4-8.2)
[2022-06-10 15:12] VITALS: BP 117/73; PULSE 83; TEMP 36.7; O2SAT 100
== END 2022-06-10 15:13 | disposition home or self-care (01) ==
PROVIDERS: Emergency Provider Registered Nurse Emergency; PCP Nurse Practitioner
DX: O26.892 Other specified pregnancy related conditions, second trimester (principal); R10.11 Right upper quadrant pain; R10.31 Right lower quadrant pain; R19.7 Diarrhea, unspecified; O99.891 Other specified diseases and conditions complicating pregnancy; N13.30 Unspecified hydronephrosis; O09.292 Supervision of pregnancy with other poor reproductive or obstetric history, second trimester; R11.0 Nausea; Z3A.15 15 weeks gestation of pregnancy
CPT/HCPCS: 36415; 76815; 80053; 83690; 96360; 99284; 76705; 81003; 83735; 85025

== ENCOUNTER 2022-06-14 02:26 | Outpatient (CLI) | payer MEDICAID, SELFPAY ==
[2022-06-14 16:46] LABS: Abs Immature Grans 0.03 10^3/uL (0.0-0.06); Absolute Basophil Count 0.02 10^3/uL (0.0-0.2); Absolute Eosinophil Count 0.25 10^3/uL (0.0-0.7); Absolute Lymphocyte Count 2.06 10^3/uL (1.2-3.4); Absolute Monocyte Count 0.66 10^3/uL (0.1-0.8); Basophils % 0.2; ESR 5 mm/hr (0-20); Eosinophils % 2.8; HCT 32.7 % (36.0-46.0); HGB 11.1 g/dL (11.2-15.7); Immature Grans % 0.3; Lymphocytes % 22.8; MCH 30.3 pg (27.0-33.0); MCHC 33.9 % (32.0-36.0); MCV 89 fL (80-95); MPV 9.7 fL (8.0-11.0); Monocytes % 7.3; Neutrophils % 66.6; Platelet Count 240 10^3/uL (130-400); RBC 3.66 10^6/uL (3.93-5.22); RDW-SD 42.5 fL; WBC 9.02 10^3/uL (4.4-10.8)
[2022-06-14 17:49] LABS: Iron 42 ug/dL (50-170); Total Iron Binding Capacity 324 ug/dL (250-450); Transferrin Sat 13 % (15-50)
[2022-06-14 18:00] LABS: ALT 51 U/L (14-59); AST 25 U/L (15-37); Albumin 3.2 g/dL (3.4-5.0); Alkaline Phosphatase 41 U/L (46-116); Anion Gap 6.6 mmol/L (3-11); BUN 8 mg/dL (7-18); Bilirubin, Total 0.2 mg/dL (0.2-1.0); CO2 26.4 mmol/L (21.0-32.0); CREATININE 0.6 mg/dL (0.55-1.02); Chloride 104 mmol/L (98-107); Estimated GFR 129.27 (mL/min/1.73m2); Ferritin 19 ng/mL (8-252); Glucose 91 mg/dL (74-106); Potassium 3.7 mmol/L (3.5-5.1); Sodium 137 mmol/L (136-145); Vitamin B12 336 pg/mL (193-986)
[2022-06-14 18:08] LABS: C-Reactive Protein 0.21 mg/dL (0.0-0.3)
[2022-06-17 14:39] LABS: AFP 57.7 ng/mL; Cigarette smoking status non-Smoker; GA used in risk estimate Dates estimate; IVF Pregnancy No; Initial or repeat testing Initial testing; Insulin dependent diabetes No; Maternal Weight 158 lbs; Number of Fetuses 1; Physician Phone Number 802-748-7300; Prev Pregnancy w/NTD No; RECOMMENDED FOLLOW UP None.; Results Summary Normal risk
== END 2022-06-14 02:27 | disposition home or self-care (01) ==
LOC: LBO 02:26
PROVIDERS: Internal Medicine Gastroenterology; PCP Nurse Practitioner; Visit Provider Obstetrics & Gynecology Gynecology
DX: Z34.90 Encounter for supervision of normal pregnancy, unspecified, unspecified trimester (principal)
CPT/HCPCS: 36415; 80053; 85652; 82105; 82607; 82728; 83540; 83550; 85025; 86140

== ENCOUNTER 2022-06-15 16:50 | Outpatient (REF) | payer MEDICAID, SELFPAY ==
[2022-06-16 22:47] LABS: Campylobacter PCR Negative (Negative); Salmonella PCR Negative (Negative); Shiga Toxin PCR Negative (Negative); Shigella/Enteroinvasive Ecoli Negative (Negative)
[2022-06-18 21:12] LABS: Calprotectin <50.0 mcg/g
== END 2022-06-15 16:51 | disposition home or self-care (01) ==
LOC: LBN 16:50
PROVIDERS: PCP Nurse Practitioner; Visit Provider Internal Medicine Gastroenterology
DX: K50.80 Crohn's disease of both small and large intestine without complications (principal); R19.7 Diarrhea, unspecified
CPT/HCPCS: 87493; 87505; 83993

== ENCOUNTER 2022-07-06 15:11 | Outpatient (REF) | payer MEDICAID, SELFPAY | END 2022-07-06 15:12 | disposition home or self-care (01) | LOC: LBN 15:11 | PROVIDERS: PCP Nurse Practitioner; Visit Provider Advanced Practice Midwife | DX: O26.852 Spotting complicating pregnancy, second trimester (principal); Z3A.19 19 weeks gestation of pregnancy | CPT/HCPCS: 87480; 87510; 87660 ==

== ENCOUNTER 2022-07-19 01:46 | Outpatient (RCR) | payer MEDICAID, SELFPAY ==
[2022-06-28 00:13] VITALS: BP 113/72; PULSE 103; RESP 16; TEMP 36.6
[2022-07-19] MEDS: Normal Saline Flush 10 ML SYR IVP (08:07)
[2022-07-19] MEDS: Famotidine 20 MG/2 ML VIAL IVP (08:07)
[2022-07-19] MEDS: methylPREDNISolone SUCC 40 MG VIAL IVP (08:07)
[2022-07-19 08:10] VITALS: BP 118/76; PULSE 103; RESP 14; TEMP 36.5; O2SAT 100
[2022-07-19 08:53] VITALS: BP 116/75; PULSE 93; RESP 17; TEMP 36.7; O2SAT 100
[2022-07-19 09:10] VITALS: BP 118/78; PULSE 97; RESP 17; TEMP 36.6; O2SAT 100
[2022-07-19 09:40] VITALS: BP 114/76; PULSE 95; RESP 16; TEMP 36.5; O2SAT 100
[2022-07-19 10:10] VITALS: BP 120/74; PULSE 99; RESP 16; TEMP 36.6; O2SAT 100
[2022-07-19 10:30] VITALS: BP 118/72; PULSE 99; RESP 16; TEMP 36.5; O2SAT 100
== END 2022-07-28 23:59 | disposition home or self-care (01) ==
LOC: INF 01:46
PROVIDERS: PCP Nurse Practitioner; Visit Provider Nurse Practitioner Acute Care
DX: K50.90 Crohn's disease, unspecified, without complications (principal)
CPT/HCPCS: 96365; 96366; 96374; 96375; 96413; 96415; J1745

== ENCOUNTER 2022-07-21 13:24 | Outpatient (CLI) | payer MEDICAID, SELFPAY ==
--- NOTE | 2022-07-21 13:42 | PGE_ITS ---
Date of Service Date of service: 07/21/22 Time of Service: 13:42 Assessment and Plan Assessment and plan (1) Near syncope: Status: Acute Assessment and plan: 1. Will observe with VS, PO hydration, rest and doppler FHR 2. If symptoms resolve will allow discharge to home. EARLENE Subjective Subjective Interval history since last seen: Farida called [facility] [place] with complaint of near syncopal episode while sitting at her desk doing computer work. She did not pass out but did lay on the floor to make her episode resolve. She reports that since that time she has had a lump in my throat Denies difficulty breathing or swallowing. Did not eat lunch due to work. She does not have any obstetric complaints of pain, bleeding or discharge. She reports that she had a near syncopal episode many years ago when she was first begin worked up for her Chron's disease. Denies any new foods or medications. Feeling better now, Was also concerned as her BP was elevated from her baseline at her visit yesterday. Agrees to observation with VS, doppler HR, and PO hydration. Exam Const General: cooperative, healthy appearing, in distress mild and other (upset and scared by near syncopal episode) Nutritional Appearance: average body habitus Orientation: alert and oriented x3 HENMT Head: normal to inspection and atraumatic Ears: hearing grossly normal bilaterally General nose exam: external nose normal and nares normal Face and sinus: face symmetric Mouth: oral mucosae normal Eyes General: appearance normal, both eyes and all related structures Resp Effort & Inspection: normal respiratory effort and able to speak in complete sentences GI Inspection: normal to inspection Other: deferred Skin General skin exam: no rashes or lesions noted and turgor normal Neuro General: gait normal, tone normal and moves all extremities Speech: speech normal Extrem General: normal to inspection and full ROM Psych Appearance: grossly normal and well kempt Mental Status: mental status grossly normal (scared by near syncopal episode at work, otherwise doing well) Speech and Movement: speech and movement normal Mood: anxious mood Affect: normal affect Attitude: cooperative Thought Process: normal Thought Content: normal Insight: insight good Judgment: judgment good Objective BP 118/69 P 84, O2 100% on room air. FHR 140 Time Spent with Patient Time Spent with Patient: <25 minutes Time was spent: preparing to see the patient(eg.review tests), obtaining and/or reviewing separately otained hiistory and counseling the patient
[2022-07-21 13:58] VITALS: BP 118/69; PULSE 84; RESP 18; TEMP 36.6; O2SAT 100
== END 2022-07-21 13:59 | disposition home or self-care (01) ==
PROVIDERS: PCP Nurse Practitioner; Visit Provider Advanced Practice Midwife
DX: R55 Syncope and collapse (principal)
CPT/HCPCS: 99211

== ENCOUNTER 2022-08-30 02:17 | Outpatient (RCR) | payer MEDICAID, SELFPAY ==
[2022-07-29 00:15] VITALS: BP 118/72; PULSE 99; RESP 16; TEMP 36.5
[2022-08-30] MEDS: methylPREDNISolone SUCC 40 MG VIAL IVP (08:19)
[2022-08-30] MEDS: Normal Saline Flush 10 ML SYR IVP (08:19)
[2022-08-30] MEDS: Famotidine 20 MG/2 ML VIAL IVP (08:24)
[2022-08-30 08:29] VITALS: BP 112/74; PULSE 107; RESP 16; TEMP 36.8; O2SAT 99
[2022-08-30 09:10] VITALS: BP 112/72; PULSE 96; RESP 16; TEMP 36.5; O2SAT 99
[2022-08-30 09:25] VITALS: BP 111/76; PULSE 89; RESP 18; TEMP 36.8; O2SAT 100
[2022-08-30 09:55] VITALS: BP 118/71; PULSE 99; RESP 16; TEMP 36.7; O2SAT 100
[2022-08-30 10:25] VITALS: BP 132/79; PULSE 105; RESP 16; TEMP 36.7; O2SAT 100
[2022-08-30 10:55] VITALS: BP 112/76; PULSE 103; RESP 16; TEMP 36.7; O2SAT 99
[2022-09-07 17:05] LABS: Infliximab 30 mcg/mL (<=5.0)
== END 2022-09-27 23:59 | disposition home or self-care (01) ==
LOC: INF 02:17
PROVIDERS: Internal Medicine Gastroenterology; PCP Nurse Practitioner; Visit Provider Nurse Practitioner Family
DX: K50.80 Crohn's disease of both small and large intestine without complications
CPT/HCPCS: 36415; 82397; 96365; 96366; 96374; 96375; 96413; 96415; J1745

== ENCOUNTER 2022-09-07 03:38 | Outpatient (CLI) | payer MEDICAID, SELFPAY ==
[2022-09-07 07:17] LABS: HCT 31.8 % (36.0-46.0); HGB 10.3 g/dL (11.2-15.7); MCH 29.9 pg (27.0-33.0); MCHC 32.4 % (32.0-36.0); MCV 92 fL (80-95); Platelet Count 244 10^3/uL (130-400); RBC 3.45 10^6/uL (3.93-5.22); RDW 13.2 % (11.7-14.6); RDW-SD 44.3 fL; WBC 10.45 10^3/uL (4.4-10.8)
[2022-09-07 07:33] LABS: Glucose,1 Hr (Glucola) 73 mg/dL (80-140)
== END 2022-09-07 03:39 | disposition home or self-care (01) ==
LOC: LBO 03:38
PROVIDERS: PCP Nurse Practitioner; Visit Provider Advanced Practice Midwife
DX: Z34.02 Encounter for supervision of normal first pregnancy, second trimester (principal)
CPT/HCPCS: 36415; 82950; 85027

== ENCOUNTER 2022-09-08 01:55 | Outpatient (CLI) | payer MEDICAID, SELFPAY ==
--- NOTE | 2022-09-08 08:45 | DI.US_ITS ---
Exam(s) US OB GRACE WEIGHT EXAM: US OB GRACE WEIGHT CLINICAL HISTORY: Crohn's;growth and fluid volume due to Crohn's,k50.90. TECHNIQUE: Transabdominal obstetrical ultrasound was performed. COMPARISON: US US OB F/U FACIAL/LVOT/RVOT from 06/10/2022 FINDINGS: There is a single viable intrauterine gestation with cardiac activity identified-158 bpm The fetus is presently in cephalic position . Amniotic fluid: There is a normal amount of amniotic fluid with an GRACE of 15.23cm. Placental location: The placenta is posterior grade 1,with no evidence of placenta previa. Dating parameters place this at approximately 29 weeks and 3 days gestational age, implying ART of November 21, 2022. BPD measures 29 weeks and 5 days HC measures 29 weeks and 5 days AC measures 29 weeks and 0 days FL measures 29 weeks and 0 days Estimated weight is 1338 gm-2 pounds 15 ounces Fetus is at the 64th percentile on the Hadlock scale. IMPRESSION:: Viable intrauterine gestation, as described above. Please note anomaly survey was not performed today. DATA REPOSITORY:
== END 2022-09-08 02:15 ==
LOC: DI 01:55
PROVIDERS: PCP Nurse Practitioner; Visit Provider Advanced Practice Midwife
DX: Z34.03 Encounter for supervision of normal first pregnancy, third trimester (principal); K50.90 Crohn's disease, unspecified, without complications
CPT/HCPCS: 76816

== ENCOUNTER 2022-09-08 17:16 | Emergency (ER) | payer MEDICAID, SELFPAY ==
[2022-09-08 17:22] VITALS: BP 134/86; PULSE 93; RESP 15; TEMP 37.2; O2SAT 99
--- NOTE | 2022-09-08 17:30 | DI.RAD_ITS ---
Exam(s) XR HAND RT COMPLETE EXAM: XR HAND RT COMPLETE CLINICAL HISTORY: Laceration between middle and ring finger glass. TECHNIQUE: 2D digital imaging was performed. COMPARISON: No exams were available for comparison FINDINGS: 3 views No evidence of acute fracture or dislocation. No radiopaque foreign body. No gas in the soft tissue s of the hand. No osseous lesions. Bone density normal. IMPRESSION: No significant osseous findings. No radiopaque foreign body evident. DATA REPOSITORY: RADIATION DOSE DELIVERED:
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
--- NOTE | 2022-09-08 18:41 | DI.VRAD_ITS ---
PROCEDURE INFORMATION: Exam: XR Right Hand Exam date and time: 09/08/2022 18:31 Age: 22 years old Clinical indication: Other: Laceration between middle and ring finger glass TECHNIQUE: Imaging protocol: Radiologic exam of the right hand. Views: 3 or more views. COMPARISON: No relevant prior studies available. FINDINGS: Bones/joints: No acute fracture or subluxation. Soft tissues: No radiopaque foreign body is seen. Other findings: Laceration projecting between 2nd and 3rd interdigital space as stated in the history. IMPRESSION: No radiopaque foreign body is seen. Dictated and Authenticated by: Smita Joseph MD. Ordering:RAFI George MD
== END 2022-09-08 18:53 | disposition home or self-care (01) ==
PROVIDERS: Emergency Provider Emergency Medicine; PCP Nurse Practitioner
DX: S61.411A Laceration without foreign body of right hand, initial encounter (principal); W25.XXXA Contact with sharp glass, initial encounter; Y93.G1 Activity, food preparation and clean up; Y92.9 Unspecified place or not applicable; Y99.9 Unspecified external cause status
CPT/HCPCS: 99282; 73130

== ENCOUNTER → 2022-10-05 03:06 | Outpatient (CLI) | payer MEDICAID, SELFPAY ==
--- NOTE | 2022-10-05 07:45 | DI.US_ITS ---
Exam(s) US OB GRACE WEIGHT EXAM: US OB GRACE WEIGHT CLINICAL HISTORY: growth and fluid volume due to Crohns disease,z34.90. TECHNIQUE: Transabdominal obstetrical ultrasound performed. COMPARISON: US US OB GRACE WEIGHT from 09/08/2022 FINDINGS: Number of fetuses: 1 position: Cephalic. The spine is anterior and to the left. Placental location: POST/RT. Grade 2. No evidence of previa. BIOMETRIC DATA: BPD: 8.36cm, 33weeks 5days HC: 30.07cm, 33weeks 2days AC: 29.94cm, 33weeks 6days FL: 6.07cm, 31weeks 4days EFW: 2,132.39g, 4lb 12.93oz, 68.1% Composite Age: 33weeks 1day ART: 11/22/2022 Heart Rate: 129bpm Amniotic fluid index: 12.6cm. Visually, amount of fluid is within normal limits. IMPRESSION: 1. Single live intrauterine gestation as above. There has been normal interval growth. 2. Estimated weight is 2132gms. This is the 68th percentile. 3. Amniotic fluid index is 12.6 cm. Visually within normal limits. DATA REPOSITORY:
== END ==
PROVIDERS: PCP Nurse Practitioner; Visit Provider Advanced Practice Midwife
DX: K50.90 Crohn's disease, unspecified, without complications (principal); Z34.93 Encounter for supervision of normal pregnancy, unspecified, third trimester
CPT/HCPCS: 76816

== ENCOUNTER 2022-10-18 04:25 | Outpatient (RCR) | payer MEDICAID, SELFPAY ==
[2022-09-28 00:10] VITALS: BP 112/76; PULSE 103; RESP 16; TEMP 36.7
[2022-10-18] VITALS (7 sets, daily range): BP systolic 105–121; BP diastolic 72–81; PULSE 89–107; RESP 16; TEMP 36.8–37; O2SAT 98–100
[2022-10-18] MEDS: Famotidine 20 MG/2 ML VIAL IVP (08:10)
[2022-10-18] MEDS: Normal Saline Flush 10 ML SYR IVP (08:12)
[2022-10-18] MEDS: methylPREDNISolone SUCC 40 MG VIAL IVP (08:12)
[2022-10-18] MEDS: Water,Injection,Sterile 10 ML VIAL (08:12)
[2022-10-18 08:58] LABS: HCT 34.7 % (36.0-46.0); HGB 11.3 g/dL (11.2-15.7); MCH 30.4 pg (27.0-33.0); MCHC 32.6 % (32.0-36.0); MCV 93 fL (80-95); MPV 11.1 fL (8.0-11.0); Platelet Count 196 10^3/uL (130-400); RBC 3.72 10^6/uL (3.93-5.22); RDW-SD 47.5 fL; WBC 8.21 10^3/uL (4.4-10.8)
[2022-10-18 09:15] LABS: ALT 13 U/L (14-59); AST 17 U/L (15-37); Albumin 2.7 g/dL (3.4-5.0); Alkaline Phosphatase 114 U/L (46-116); Bilirubin, Direct 0.1 mg/dL (0.0-0.2); Bilirubin, Total 0.3 mg/dL (0.2-1.0); C-Reactive Protein 0.47 mg/dL (0.0-0.3); Total Protein 6.6 g/dL (6.4-8.2)
== END 2022-10-28 23:59 | disposition home or self-care (01) ==
LOC: INF 04:25
PROVIDERS: PCP Nurse Practitioner; Visit Provider Nurse Practitioner Family
DX: K50.90 Crohn's disease, unspecified, without complications (principal)
CPT/HCPCS: 36415; 80076; 85027; 96365; 96366; 86140; J1745

== ENCOUNTER 2022-11-02 21:16 | Outpatient (REF) | payer MEDICAID, SELFPAY ==
[2022-11-02 19:06] LABS: *AMPHETAMINES SCREEN URINE Negative (Negative); *BARBITURATES SCREEN URINE Negative (Negative); *BENZODIAZEPINES SCREEN URINE Negative (Negative); Cannabinoids THC Negative (Negative); Cocaine Screen,Urine Negative (Negative); METHADONE URINE SCREEN Negative (Negative); OPIATES URINE SCREEN Negative (Negative)
[2022-11-02 19:14] LABS: Tricyclic Antidepressants Negative (Negative)
[2022-11-08 22:01] LABS: Buprenorphine Negative ng/mL (Cutoff: 5.0); Norbuprenorphine Negative ng/mL (Cutoff: 2.5)
== END 2022-11-02 21:17 | disposition home or self-care (01) ==
LOC: LBN 21:16
PROVIDERS: PCP Nurse Practitioner; Visit Provider Advanced Practice Midwife
DX: Z34.90 Encounter for supervision of normal pregnancy, unspecified, unspecified trimester (principal)
CPT/HCPCS: 80307; 80348; 87081

== ENCOUNTER 2022-11-14 17:21 | Outpatient (CLI) | payer MEDICAID, SELFPAY ==
[2022-11-14 17:44] VITALS: BP 121/86; PULSE 84; TEMP 37.2
[2022-11-14 18:00] VITALS: BP 121/86; PULSE 84
--- NOTE | 2022-11-14 18:12 | W.OBNST ---
Date of service: 11/14/22 Time of Service: 18:25 NST Evaluation Reason for NST Reasons for Nonstress Test: DECREASED MOVEMENT Gestational Age Gestational Age in Weeks and Days: 38 Weeks and 0Days Test and Monitor Explained Test/Monitor Explained: Test Explained, Monitor Explained and Patient Verbalized Understanding NST Information Time on Monitor: 17:38 NST Interventions: PO Hydration NST Evaluation Patient States Movement: Present and Decreased FHR Baseline: 120 Variability: Moderate 6-25 bpm Accelerations: 15x15 Decelerations: None NST Results: Reactive Note Ultrasound Done: N/A. NST Note Note: NST is reactive and reassuring. Patient verbalized by phone with provider that she is aware of movement and is comfortable going home to rest now. Has appointment in office in am. EARLENE NST Reviewed and Verified by: Tara Macias
== END 2022-11-14 18:00 | disposition home or self-care (01) ==
LOC: BCD 17:23 → OBS 17:35
PROVIDERS: PCP Nurse Practitioner; Visit Provider Advanced Practice Midwife
DX: O36.8131 Decreased fetal movements, third trimester, fetus 1 (principal); Z3A.38 38 weeks gestation of pregnancy
CPT/HCPCS: 59025

== ENCOUNTER → 2022-11-15 02:55 | Outpatient (CLI) | payer MEDICAID, SELFPAY ==
--- NOTE | 2022-11-15 06:45 | DI.US_ITS ---
Exam(s) US OB GRACE WEIGHT EXAM: US OB GRACE WEIGHT CLINICAL HISTORY: growth due to Chron's,K50.90,Z34.90. TECHNIQUE: Transabdominal obstetrical ultrasound performed. COMPARISON: US US OB GRACE WEIGHT from 10/05/2022 FINDINGS:: Number of fetuses: One. position: Vertex. Placental location: Posterior. No evidence of previa. BIOMETRIC DATA: BPD: 93mm = 37+ 6 weeks HC: 334mm = 38+ 1 weeks AC: 343mm = 38+ 1 weeks FL: 74 mm = 37+ 5 weeks EFW: 3376 Gms = 61% Composite Age: 38+ 0 weeks ART: 29 November 2022 Heart Rate: 141BPM Amniotic fluid index: 10.2 cm. Amount of fluid is visually within normal limits. IMPRESSION: size and weight are within the expected range. DATA REPOSITORY:
== END ==
PROVIDERS: PCP Nurse Practitioner; Visit Provider Advanced Practice Midwife
DX: K50.90 Crohn's disease, unspecified, without complications (principal); Z34.93 Encounter for supervision of normal pregnancy, unspecified, third trimester
CPT/HCPCS: 76816

== ENCOUNTER 2022-11-17 01:44 | Outpatient (CLI) | payer MEDICAID, SELFPAY ==
[2022-11-17 02:55] VITALS: BP 123/86; PULSE 116; TEMP 36.4
--- NOTE | 2022-11-19 11:08 | W.OBNST ---
Date of service: 11/17/22 Time of Service: 03:00 NST Evaluation Reason for NST Reasons for Nonstress Test: FALSE LABOR Gestational Age Gestational Age in Weeks and Days: 38 Weeks and 3Days Test and Monitor Explained Test/Monitor Explained: Test Explained Vital Signs Blood Pressure: 123/86 Pulse: 116 Temperature: 97.6 F Urine Results Urine Protein: Negative Urine Ketones: Negative Urine Glucose: Negative Urine Blood: Negative NST Information Date on Monitor: 11/17/22 Time on Monitor: 02:28 Date off Monitor: 11/17/22 Time off Monitor: 02:50 Total Time on Monitor: 22 NST Interventions: PO Hydration NST Evaluation Patient States Movement: Present FHR Baseline: 145 Variability: Moderate 6-25 bpm Accelerations: 15x15 Decelerations: None NST Results: Reactive Note Ultrasound Done: N/A. NST Note Note: Reactive NST, no signs of labor, VE closed, medium consistency -3. KH NST Reviewed and Verified by: Tara Macias
[2022-11-19 11:09] VITALS: BP 123/86; PULSE 116; TEMP 36.4
== END 2022-11-17 03:00 | disposition home or self-care (01) ==
LOC: BCD 01:46 → OBS 02:22
PROVIDERS: PCP Nurse Practitioner; Visit Provider Advanced Practice Midwife
DX: O47.1 False labor at or after 37 completed weeks of gestation (principal); Z3A.38 38 weeks gestation of pregnancy
CPT/HCPCS: 59025; G0378

== ENCOUNTER 2022-12-01 08:25 | Outpatient (CLI) | payer MEDICAID, SELFPAY ==
[2022-12-01 08:42] VITALS: BP 123/89; PULSE 90; TEMP 37.1
[2022-12-01 09:01] VITALS: BP 123/89; PULSE 90
--- NOTE | 2022-12-01 09:38 | W.OBNST ---
Date of service: 12/01/22 Time of Service: 11:06 NST Evaluation Reason for NST Reasons for Nonstress Test: OTHER, SEE COMMENT Reason for NST Other: R/O labor Gestational Age Gestational Age in Weeks and Days: 40 Weeks and 3Days Test and Monitor Explained Test/Monitor Explained: Test Explained, Monitor Explained and Patient Verbalized Understanding Vital Signs Blood Pressure: 123/89 Pulse: 90 Temperature: 98.8 F NST Information Time on Monitor: 08:25 Date off Monitor: 12/01/22 Time off Monitor: 09:18 NST Interventions: PO Hydration NST Evaluation Patient States Movement: Present FHR Baseline: 145 Variability: Moderate 6-25 bpm Accelerations: 15x15 Decelerations: None NST Results: Reactive Note Ultrasound Done: N/A. NST Note Note: Farida has been experiencing cramping this morning and some spotting. Occasional mild contractions noted. Reactive NST. SVE cervix FT, 40%, -2, firm. Signs of labor reviewed. After the exam, Farida passed a small clot in the bathroom. She remained at the center and had no other episodes of bleeding. She returned home with instructions to return with SROM, bleeding or sign sof active labor. NST Reviewed and Verified by: Tara Stephenson
[2022-12-01 09:40] VITALS: BP 123/89; PULSE 90; TEMP 37.1
== END 2022-12-01 10:00 | disposition home or self-care (01) ==
LOC: BCD 08:26 → OBS 08:40
PROVIDERS: PCP Nurse Practitioner; Visit Provider Advanced Practice Midwife
DX: O47.03 False labor before 37 completed weeks of gestation, third trimester (principal); Z3A.40 40 weeks gestation of pregnancy
CPT/HCPCS: 59025

== ENCOUNTER 2022-12-01 20:31 | Outpatient (CLI) | payer MEDICAID, SELFPAY ==
[2022-12-01 20:55] VITALS: BP 125/84; PULSE 83
[2022-12-01 20:56] VITALS: BP 125/84; PULSE 83; RESP 16; TEMP 36.7
[2022-12-01 21:29] VITALS: BP 125/84; PULSE 83; RESP 16; TEMP 36.7
[2022-12-01 21:55] VITALS: BP 125/84; PULSE 83; TEMP 36.7
--- NOTE | 2022-12-02 09:55 | W.OBNST ---
Date of service: 12/01/22 Time of Service: 22:00 NST Evaluation Reason for NST Reasons for Nonstress Test: DECREASED MOVEMENT Gestational Age Gestational Age in Weeks and Days: 40 Weeks and 3Days Test and Monitor Explained Test/Monitor Explained: Test Explained, Monitor Explained and Patient Verbalized Understanding Vital Signs Blood Pressure: 125/84 Pulse: 83 Temperature: 98.1 F Urine Results Urine Protein: Negative Urine Ketones: Negative Urine Glucose: Negative Urine Blood: Negative NST Information Date on Monitor: 12/01/22 Time on Monitor: 20:50 NST Interventions: PO Hydration and Reposition Patient NST Evaluation Patient States Movement: Present and Decreased FHR Baseline: 145 Variability: Moderate 6-25 bpm Accelerations: None Decelerations: None NST Results: Reactive Note Ultrasound Done: N/A. NST Note Note: Farida reports that her baby is moving but she feels it is less often than usual. Reactive NST at 0900 this morning. She returns for repeat NST which is reactive. She is experiencing mild irregular contractions. Signs of labor reviewed and she will follow up with US and GRACE on 12/03. NST Reviewed and Verified by: Tara Stephenson
[2022-12-02 09:57] VITALS: BP 125/84; PULSE 83; TEMP 36.7
== END 2022-12-01 22:18 | disposition home or self-care (01) ==
PROVIDERS: PCP Nurse Practitioner; Visit Provider Advanced Practice Midwife
DX: O47.1 False labor at or after 37 completed weeks of gestation (principal); Z3A.40 40 weeks gestation of pregnancy
CPT/HCPCS: 59025

== ENCOUNTER 2022-12-02 11:08 | Outpatient (CLI) | payer MEDICAID, SELFPAY ==
[2022-12-02 11:25] VITALS: BP 120/85; PULSE 90; TEMP 36.9
[2022-12-02 11:42] VITALS: BP 120/85; PULSE 90
--- NOTE | 2022-12-02 12:23 | W.OBNST ---
Date of service: 12/02/22 Time of Service: 12:24 NST Evaluation Reason for NST Reasons for Nonstress Test: FALSE LABOR and OTHER, SEE COMMENT Reason for NST Other: maternal anxiety Gestational Age Gestational Age in Weeks and Days: 40 Weeks and 4Days Test and Monitor Explained Test/Monitor Explained: Test Explained, Monitor Explained and Patient Verbalized Understanding Vital Signs Blood Pressure: 120/85 Pulse: 90 Temperature: 98.5 F NST Information Date on Monitor: 12/02/22 Time on Monitor: 11:33 Date off Monitor: 12/02/22 Time off Monitor: 11:56 Total Time on Monitor: 23 NST Interventions: PO Hydration Contraction Frequency: x2 8min apart NST Evaluation Patient States Movement: Present FHR Baseline: 130 Variability: Moderate 6-25 bpm Accelerations: 15x15 Decelerations: None Note Ultrasound Done: GRACE (postdates) Indication: Other Total GRACE: 6.88 Other Pertinent Findings: Other (Lots of movement and breathing movements.) Coding for GRACE w/NST: Completed Exam and Presentation Presentation Results: Vertex Coding for Presentation w/NST: Completed Exam. NST Note Note: Cx: /-3/med/midplane. I had a long discussion with the patient about her concerns. She is feeling very anxious that there is something wrong. She feels reassured by the normal testing today but is also hoping for induction as soon as possible. We discussed setting something up within the next 24hrs based on staffing/scheduling with the Center. She is agreeable to this plan and was encouraged to call with any further concerns. She hopes to get her Remicade infusion 24-48hrs after delivery. NST Reviewed and Verified by: Mini Nolan
[2022-12-02 12:31] VITALS: BP 120/85; PULSE 90; TEMP 36.9
== END 2022-12-02 12:43 | disposition home or self-care (01) ==
LOC: BCD 11:09 → OBS 11:10
PROVIDERS: PCP Nurse Practitioner; Visit Provider Obstetrics & Gynecology
DX: O99.343 Other mental disorders complicating pregnancy, third trimester; Z3A.40 40 weeks gestation of pregnancy
CPT/HCPCS: 59025

== ENCOUNTER 2022-12-02 18:03 | Inpatient (IN) | payer MEDICAID, SELFPAY ==
[2022-12-02] VITALS (57 sets, daily range): BP systolic 132; BP diastolic 87; PULSE 79–135; RESP 18; TEMP 36.9–37.1
[2022-12-02 18:22] LABS: HGB 11.4 g/dL (11.2-15.7); MCH 29.5 pg (27.0-33.0); MCHC 32.6 % (32.0-36.0); MCV 90 fL (80-95); MPV 11.4 fL (8.0-11.0); Platelet Count 191 10^3/uL (130-400); RBC 3.87 10^6/uL (3.93-5.22); RDW 13.9 % (11.7-14.6); RDW-SD 46.3 fL; WBC 10.25 10^3/uL (4.4-10.8)
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
--- NOTE | 2022-12-02 22:12 | W.PM.OBNL1 ---
Date of service: 12/02/22 Time of Service: 22:12 Pelvic Exam Dilation: 1 Effacement (%): 70 station: -3 Comments: Balloon placed with 60ml of sterile water in the uterine balloon and 40ml in the vaginal balloon. Fetus A Heart Rate Baseline: 150 Variability: Moderate (6-25 BPM) Accelerations: 15 X 15 Decelerations: Variable (occasional) Assessment and Plan Assessment and plan (1) Encounter for induction of labor: Status: Acute Assessment and plan: Will monitor intermittently overnight with balloon catheter in place. Consider pitocin in the am. Objective Abnormal lab results 12/02/22 Range/Units 18:15 RBC 3.87 L (3.93-5.22) 10^6/uL Hct 35.0 L (36.0-46.0) % MPV 11.4 H (8.0-11.0) fL Temp Pulse Resp BP 98.8 F 116 H 18 132/87 12/02/22 18:23 12/02/22 22:12 12/02/22 18:23 12/02/22 18:23 Laboratory Results WBC Cancelled 12/02/22 19:43 RBC Cancelled 12/02/22 19:43 Hgb Cancelled 12/02/22 19:43 Hct Cancelled 12/02/22 19:43 MCV Cancelled 12/02/22 19:43 MCH Cancelled 12/02/22 19:43 MCHC Cancelled 12/02/22 19:43 RDW Cancelled 12/02/22 19:43 Plt Count Cancelled 12/02/22 19:43 MPV Cancelled 12/02/22 19:43 Patient ABO/Rh Cancelled 12/02/22 19:43 Antibody Screen NEGATIVE 12/02/22 18:15 Subjective Interval history since last seen: Prior to starting misoprostol the pt had some intermittent variable decels so a discussion was had and the decision was made to insert a cooks balloon catheter for cervical ripening. Results Hemoglobin/Hematocrit: Hgb Cancelled 12/02/22 19:43 Hct Cancelled 12/02/22 19:43 Abnormal Lab Findings: Abnormal Labs 12/02/22 18:15 RBC 3.87 L Hct 35.0 L MPV 11.4 H
[2022-12-02] MEDS: Zolpidem 5 MG TAB 10 MG PO (22:13)
[2022-12-02 22:45] LABS: Source Nasal/Nares
[2022-12-02 23:19] LABS: COVID-19 PCR Negative (Negative)
[2022-12-03] VITALS (241 sets, daily range): BP systolic 92–154; BP diastolic 38–87; PULSE 0–240; RESP 18–20; TEMP 36.5–37; O2SAT 96–100; BMI 31.3
--- NOTE | 2022-12-03 08:13 | W.PM.OBNL1 ---
Date of service: 12/03/22 Time of Service: 08:13 Assessment and Plan Assessment and plan (1) Encounter for induction of labor: Status: Acute Assessment and plan: Patient is having a labor induction with cervical ripening via Cook catheter. Pitocin augmentation may be the next step. Patient is willing and amenable to all methods of pain control during her labor. She does have a known history of Crohn's for which she is on immunosuppressive medications. We would like to avoid section if possible. All questions were answered this morning. (2) Crohn's disease: Status: Chronic Objective Abnormal lab results 12/02/22 Range/Units 18:15 RBC 3.87 L (3.93-5.22) 10^6/uL Hct 35.0 L (36.0-46.0) % MPV 11.4 H (8.0-11.0) fL Temp Pulse Resp BP Pulse Ox 98.1 F 93 H 20 122/81 99 12/03/22 07:26 12/03/22 07:26 12/03/22 07:26 12/03/22 07:26 12/03/22 07:26 Laboratory Results WBC Cancelled 12/02/22 19:43 RBC Cancelled 12/02/22 19:43 Hgb Cancelled 12/02/22 19:43 Hct Cancelled 12/02/22 19:43 MCV Cancelled 12/02/22 19:43 MCH Cancelled 12/02/22 19:43 MCHC Cancelled 12/02/22 19:43 RDW Cancelled 12/02/22 19:43 Plt Count Cancelled 12/02/22 19:43 MPV Cancelled 12/02/22 19:43 COVID-19 Source Nasal/Nares 12/02/22 18:20 SARS-CoV-2 (PCR) Negative (Negative) 12/02/22 18:20 Patient ABO/Rh Cancelled 12/02/22 19:43 Antibody Screen NEGATIVE 12/02/22 18:15 Subjective Interval history since last seen: Patient was seen and examined this morning. Her Cook catheter is in place. She states that she has had little sleep and some crampiness. Baby's been moving and active. She gets most pain relief when she is in the shower and intends to do that again this morning. She initially wanted a low interventional, unmedicated, water , however she has changed her mind at this point and is open to all forms of pain control including hydrotherapy, nitrous, and the possibility of an epidural. Her Cook catheter will remain in place till approximately 10:00 this morning. At that point, it will be removed unless it spontaneously is expelled. Pitocin augmentation may be her next best step Results Hemoglobin/Hematocrit: Hgb Cancelled 12/02/22 19:43 Hct Cancelled 12/02/22 19:43 Abnormal Lab Findings: Abnormal Labs 12/02/22 18:15 RBC 3.87 L Hct 35.0 L MPV 11.4 H
[2022-12-03] MEDS: Cetirizine 10 MG TAB PO (09:31)
[2022-12-03] MEDS: Sertraline 25 MG TAB PO (09:31)
--- NOTE | 2022-12-03 10:23 | W.PM.OBNL1 ---
Date of service: 12/03/22 Time of Service: : Informed Consent Informed Consent: Induction of Labor (Pitocin at this point) Pelvic Exam Dilation: 4 Effacement (%): 70 station: -2 Position: OA Assessment and Plan Assessment and plan (1) Encounter for induction of labor: Status: Acute Assessment and plan: Labor induction. Appropriate Mayes score. Cook catheter removed. Begin Pitocin augmentation. Pain control as needed. (2) Crohn's disease: Status: Chronic Objective Abnormal lab results 12/02/22 Range/Units 18:15 RBC 3.87 L (3.93-5.22) 10^6/uL Hct 35.0 L (36.0-46.0) % MPV 11.4 H (8.0-11.0) fL Temp Pulse Resp BP Pulse Ox 97.7 F 101 H 20 122/83 99 12/03/22 09:34 12/03/22 09:34 12/03/22 07:26 12/03/22 09:34 12/03/22 07:26 Laboratory Results WBC Cancelled 12/02/22 19:43 RBC Cancelled 12/02/22 19:43 Hgb Cancelled 12/02/22 19:43 Hct Cancelled 12/02/22 19:43 MCV Cancelled 12/02/22 19:43 MCH Cancelled 12/02/22 19:43 MCHC Cancelled 12/02/22 19:43 RDW Cancelled 12/02/22 19:43 Plt Count Cancelled 12/02/22 19:43 MPV Cancelled 12/02/22 19:43 COVID-19 Source Nasal/Nares 12/02/22 18:20 SARS-CoV-2 (PCR) Negative (Negative) 12/02/22 18:20 Patient ABO/Rh Cancelled 12/02/22 19:43 Antibody Screen NEGATIVE 12/02/22 18:15 Subjective Interval history since last seen: Patient seen and examined. Comfortable at this point. Cervical check performed. Balloon in the opening of the cervix. Deflated slightly and removed without difficulty. Cervix is 4 cm, 70%. We will plan beginning Pitocin augmentation. Results Hemoglobin/Hematocrit: Hgb Cancelled 12/02/22 19:43 Hct Cancelled 12/02/22 19:43 Abnormal Lab Findings: Abnormal Labs 12/02/22 18:15 RBC 3.87 L Hct 35.0 L MPV 11.4 H
[2022-12-03] MEDS: Lactated Ringers 1,000 ML 125 ML IV ×2 (11:23→23:36)
[2022-12-03] MEDS: Oxytocin/Normal Saline 30 UNIT/500 ML BAG 1 UNITS IV (11:24)
--- NOTE | 2022-12-03 14:31 | W.PM.OBNL1 ---
Date of service: 12/03/22 Time of Service: 14:31 Informed Consent Informed Consent: Induction of Labor (Pitocin at this point) and Other (Artificial rupture) Pelvic Exam Dilation: 4 Effacement (%): 70 Position: OA Contractions Monitor Mode: Palpation Contraction Frequency(min): 5 Fetus A Monitor: External (US) Heart Rate Baseline: 155 Presentation: Cephalic Variability: Moderate (6-25 BPM) Categories: Category I Accelerations: Present Amniotic Membrane Status: Ruptured Rupture Method: Artifical Amniotic Fluid: Meconium Amount: gush Date of Membrane Rupture: 12/03/22 Time of Membrane Rupture: 14:33 Assessment and Plan Assessment and plan (1) Encounter for induction of labor: Status: Acute Assessment and plan: Labor induction at term due to decreased movement and maternal history of inflammatory bowel disease. Patient had artificial rupture of membranes for lightly meconium stained fluid. Pitocin is currently at 3. Sylvie every 3-5 by external palpation. Continue current plan. Anticipate vaginal delivery. Pain control as necessary. (2) Asthma: Status: Chronic (3) Meconium in amniotic fluid: Status: Acute Objective Abnormal lab results 12/02/22 Range/Units 18:15 RBC 3.87 L (3.93-5.22) 10^6/uL Hct 35.0 L (36.0-46.0) % MPV 11.4 H (8.0-11.0) fL Temp Pulse Resp BP Pulse Ox 98.1 F 78 20 130/81 100 12/03/22 14:00 12/03/22 14:29 12/03/22 07:26 12/03/22 12:03 12/03/22 14:29 Laboratory Results WBC Cancelled 12/02/22 19:43 RBC Cancelled 12/02/22 19:43 Hgb Cancelled 12/02/22 19:43 Hct Cancelled 12/02/22 19:43 MCV Cancelled 12/02/22 19:43 MCH Cancelled 12/02/22 19:43 MCHC Cancelled 12/02/22 19:43 RDW Cancelled 12/02/22 19:43 Plt Count Cancelled 12/02/22 19:43 MPV Cancelled 12/02/22 19:43 COVID-19 Source Nasal/Nares 12/02/22 18:20 SARS-CoV-2 (PCR) Negative (Negative) 12/02/22 18:20 Patient ABO/Rh Cancelled 12/02/22 19:43 Antibody Screen NEGATIVE 12/02/22 18:15 Subjective Interval history since last seen: Patient seen, more uncomfortable with contractions. Baby did have an episode of approximately 20 minutes of heart tones of approximately 170. Responded well to fluid bolus x2. No temperature, no maternal tachycardia. Discussed her Pitocin at 3, informed consent for artificial rupture of membranes. Results Hemoglobin/Hematocrit: Hgb Cancelled 12/02/22 19:43 Hct Cancelled 12/02/22 19:43 Abnormal Lab Findings: Abnormal Labs 12/02/22 18:15 RBC 3.87 L Hct 35.0 L MPV 11.4 H
--- NOTE | 2022-12-03 16:45 | W.PM.OBNL1 ---
Date of service: 12/03/22 Time of Service: 16:45 Informed Consent Informed Consent: Induction of Labor (Pitocin at this point) and Other (Artificial rupture) Pelvic Exam Dilation: 5 Effacement (%): 80 station: -2 Position: OA Contractions Contraction Frequency(min): 3 Contraction Duration(sec): 60 Fetus A Heart Rate Baseline: 145 Presentation: Cephalic Variability: Moderate (6-25 BPM) Categories: Category I Accelerations: Present Decelerations: None Assessment and Plan Assessment and plan (1) Encounter for induction of labor: Status: Acute Assessment and plan: Active labor at this point. Pitocin discontinued due to frequency of contractions. Patient requesting pain control. Anesthesia notified for epidural placement. (2) Crohn's disease: Status: Chronic (3) Meconium in amniotic fluid: Status: Acute Objective Abnormal lab results 12/02/22 Range/Units 18:15 RBC 3.87 L (3.93-5.22) 10^6/uL Hct 35.0 L (36.0-46.0) % MPV 11.4 H (8.0-11.0) fL Temp Pulse Resp BP Pulse Ox 98.2 F 95 H 20 128/82 100 12/03/22 16:15 12/03/22 15:16 12/03/22 07:26 12/03/22 15:15 12/03/22 14:34 Laboratory Results WBC Cancelled 12/02/22 19:43 RBC Cancelled 12/02/22 19:43 Hgb Cancelled 12/02/22 19:43 Hct Cancelled 12/02/22 19:43 MCV Cancelled 12/02/22 19:43 MCH Cancelled 12/02/22 19:43 MCHC Cancelled 12/02/22 19:43 RDW Cancelled 12/02/22 19:43 Plt Count Cancelled 12/02/22 19:43 MPV Cancelled 12/02/22 19:43 COVID-19 Source Nasal/Nares 12/02/22 18:20 SARS-CoV-2 (PCR) Negative (Negative) 12/02/22 18:20 Patient ABO/Rh Cancelled 12/02/22 19:43 Antibody Screen NEGATIVE 12/02/22 18:15 Subjective Interval history since last seen: Patient seen and examined, significantly more uncomfortable with contractions, requesting pain control. heart tones are in the 140s, contractions every 2 to 3 minutes with Pitocin augmentation at 4 milliunits. At this point, patient is requesting discontinuation of the Pitocin until her epidural is placed. Pitocin augmentation was discontinued. Results Hemoglobin/Hematocrit: Hgb Cancelled 12/02/22 19:43 Hct Cancelled 12/02/22 19:43 Abnormal Lab Findings: Abnormal Labs 12/02/22 18:15 RBC 3.87 L Hct 35.0 L MPV 11.4 H
--- NOTE | 2022-12-03 17:01 | ANES.PREOP_ITS ---
General Info Date of Service Date Performed: 12/03/22 Height: 5 ft 3 in Weight: 80.286 kg Body Mass Index (BMI): 31.3 Meds Allergies and Home Medications Allergies Allergy/AdvReac Type Severity Reaction Status Date / Time pineapple Allergy Intermediate mouth Verified 11/23/22 14:03 tingling Home Medication Medication Instructions Recorded albuterol sulfate 90 mcg/actuation 2 puff inhalation Q6H PRN 09/16/21 aerosol inhaler (ProAir HFA) bronchospasm #8.5 grams betamethasone, augmented 0.05 % 1 applic topical BID PRN eczema 11/11/21 topical cream extremities #15 grams ondansetron HCl 4 mg tablet 4 mg PO Q8H PRN nausea and 04/16/22 vomiting #60 tabs infliximab 100 mg intravenous 500 mg IV ONCE PRN every six weeks 05/11/22 solution (Remicade) loratadine 10 mg tablet (Allergy 10 mg PO DAILY PRN 05/11/22 Relief (loratadine)) pediatric multivitamin no.76 2 tab PO DAILY 05/11/22 (Flintstones Complete chewable tablet) prochlorperazine maleate 5 mg See Rx Instructions .Route 06/15/22 tablet .COMPLEX #30 tabs sertraline 25 mg tablet (Zoloft) 25 mg PO DAILY #90 tabs 08/03/22 ferrous sulfate 325 mg (65 mg 325 mg PO Q OTHER DAY 09/08/22 iron) tablet Current Visit Medications: Current Medications Generic Name Dose Route Start Last Admin Trade Name Freq PRN Reason Stop Dose Admin Cetirizine HCl 10 mg 12/03/22 10:00 12/03/22 09:31 Cetirizine 10 Mg Tab PO 10 mg DAILY STEVEN Administration Fentanyl/Ropivacaine 200 ml 12/03/22 16:45 Fentanyl/Ropivacaine 2 Mcg/Ml And 0.1% 200 Ml [place] EP DIRECTED STEVEN Ringer's Solution 1,000 mls @ 200 mls/hr 12/02/22 18:15 IV INFUSION STEVEN Sodium Chloride 500 mls @ 0 mls/hr 12/02/22 18:02 Saline 500ml Bag IV PRN PRN As Directed Ringer's Solution 1,000 mls @ 125 mls/hr 12/03/22 10:30 12/03/22 11:23 IV 125 mls/hr INFUSION STEVEN Administration Sodium Chloride 500 mls @ 0 mls/hr 12/03/22 10:21 Saline 500ml Bag IV PRN PRN As Directed Oxytocin/Sodium Chloride 30 unit in 500 mls @ 1 mls/hr 12/03/22 10:30 12/03/22 15:15 Pitocin/Normal Saline IV 4 milliunits/min INFUSION STEVEN 4 mls/hr Titration Protocol 1 MILLIUNITS/MIN IV Miscellaneous Supplies 1 each 12/02/22 18:15 Iv Access IV DIRECTED STEVEN IV Miscellaneous Supplies 1 each 12/03/22 10:30 Iv Access IV DIRECTED STEVEN Misoprostol 25 mcg 12/02/22 19:00 12/03/22 12:08 Misoprostol 25 Mcg Tab PO Not Given Q4H STEVEN Sertraline HCl 25 mg 12/03/22 10:00 12/03/22 09:31 Sertraline 25 Mg Tab PO 25 mg DAILY STEVEN Administration Sodium Chloride 0 ml 12/02/22 18:02 Normal Saline Flush 10 Ml Syr IVP PRN PRN Sodium Chloride 0 ml 12/03/22 10:21 Normal Saline Flush 10 Ml Syr IVP PRN PRN Terbutaline Sulfate 0.25 mg 12/02/22 18:02 Terbutaline 1 Mg/Ml Vial SC PRN PRN PFSH Active Problems Active Problems: Problem Status Onset Code Meconium in amniotic fluid P96.83 Asthma J45.909 Crohn's disease K50.90 Depression F32.9 History of blood transfusion Z92.89 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 Eczema Unknown L30.9 Psoriasis Unknown L40.9 Z34.90 Rubella non-immune status, antepartum O09.899, Z28.39 Near syncope R55 Pelvic pressure in O26.899, R10.2 Encounter for induction of labor Z34.90 Medical History Medical History (Updated 12/03/22 @ 14:33 by Alexandra Dang DO) Allergic rhinitis due to allergen Nausea Surgical History Surgical History History of colonoscopy History of endoscopy No significant past surgical history Tobacco Smoking/Tobacco Use Status: Former Tobacco Use Second hand exposure: Yes (significant other vapes) Alcohol Alcohol Intake: former Substance Use Substance use: Never Substance use type: does not use, former substance user and marijuana Details: Stopped using marijuana when she found out she was same as vaping Prental History History 2 Para 0 Hx # Term Pregnancies 0 Multiple births 0 Hx # Pregnancies 0 Ectopic pregnancies 0 AB induced 0 Hx Number of Living Children 0 AB spontaneous 1 Past Pregnancies Del. Date GA/Weeks # Preg Succ Route Wgt Sex Labor Lgth Anesth esia Location Prov [facility] 08/27/[address] Garrett Delivery Date: 08/27/21 Last Updated by: Tara Macias CNM D&C Vital Signs and Lab Results Vital Signs Most Recent Vital Signs in EMR: Most Recent Vital Signs Temp Pulse Resp BP Pulse Ox 36.8 C 95 H 20 128/82 100 12/03/22 16:15 12/03/22 15:16 12/03/22 07:26 12/03/22 15:15 12/03/22 14:34 Lab Results 12/02/22 18:15 Blood Type / Crossmatch: Patient ABO/Rh O Positive 12/02/22 Antibody Screen NEGATIVE 12/02/22 Complete Blood Count: White Blood Count 10.25 10^3/uL (4.4-10.8) 12/02/22 18:15 Red Blood Count 3.87 10^6/uL (3.93-5.22) L 12/02/22 18:15 Hemoglobin 11.4 g/dL (11.2-15.7) 12/02/22 18:15 Hematocrit 35.0 % (36.0-46.0) L 12/02/22 18:15 Platelet Count 191 10^3/uL (130-400) 12/02/22 18:15 Complete Metabolic Panel: No Data to Display Liver Function Panel: No Data to Display Coagulation Panel: No Data to Display Cardiac Panel: No Data to Display Arterial Blood Gas: No Data to Display Venous Blood Gas: No Data to Display Pancreas Panel: No Data to Display Thyroid Panel: No Data to Display Infectious Disease: Coronavirus (COVID-19)(PCR) Negative (Negative) 12/02/22 18:20 Coronavirus 2019 Source Nasal/Nares 12/02/22 18:20 Blood Cultures: No Data to Display Toxicology Panel: No Data to Display Panel: 2 No Data to Display Imaging and Studies Imaging and Studies Study information below may be from another EMR and interpreted by another provider. Please see original notes in EMR for more complete details. EKG Summary: 11/20/19 Conclusion Sinus rhythm...normal P axis, V-rate 60- 99. Pulmonary Function Summary: 05/18: normal. Anesthesia Assessment and Plan Anesthesia History Personal History: No History of Anesthesia Complications Family History: No Family History of Anesthesia Complications Exercise Tolerance Exercise Tolerance: Metabolic Equivalents>4 Cardiac & Pulmonary Exam Cardiac Exam: Normal S1/S2 Heart Sounds Pulmonary Exam: Clear Bilateral Breath Sounds Implantable Cardiac Device Does patient have a Pacemaker or an ICD?: No Airway Exam Known Difficult Airway: No Mallampati Class: 3 Mouth Opening: Narrow (< 3cm) Thyromental Distance: Greater than 3 cm Neck Range of Motion: Full ROM Neck Circumference: Normal Teeth Condition: Normal Dentition ASA Classification ASA Score: ASA 2 Emergency Case?: No NPO Status NPO Status: NPO Clears >2 hours, Solids >8 hours and Full Stomach Status Status: Confirmed Anesthesia Plan Resuscitation Status: Full Code Anesthesia Technique: Epidural Anesthesia Airway Planned: Asleep Fiberoptic Pain Management: Epidural Monitors Used: Standard Monitors Preoperative Comments:: 22 yo IOL for term with decreased HR and IBD. Sig PMHx: former smoker, asthma (albuterol - has not used in a while, normal spirometry), crohns (Remicade), eczema/psoriasis, depression Plt 191. Previous Anes: - D/C, prop, natural airway, no issues.
[2022-12-03] MEDS: FentaNYL/ROPIvacaine 2 mcg/ml and 0.1% 200 ML CADD Cassette EP (17:40)
--- NOTE | 2022-12-03 18:04 | ANES.NEUR_ITS ---
Epidural/Spinal Catheter Date Performed: 12/03/22 Procedure Start: 17:17 Procedure Stop: 17:30 Requesting Provider: Alexandra Dang Procedure Location: Obstetrics Reason Performed: Labor Epidural Standard Monitors Applied: Blood Pressure and SpO2 Patient Position: Sitting Sedation Given (Indicate Dose Given): No Sedation given Patient Mental Status: Awake Sterility: Hand Hygiene, Surgical Cap, Surgical Mask, Sterile Gloves, Sterile Drape/Sheet and Chlorhexidine Procedure Location: L4-L5 Interspace Epidural Needle: Tuohy 18 Gauge Needle Length: 3.5 Inch Needle Approach: Midline Epidural Procedure: COURTNEY to Saline Used and Epidural Catheter Placed (wire reinforced. ) Catheter Placed?: Catheter Placed Test Dose (Indicate Dose Given): 3ml 1.5% Lidocaine with 1:200K Epinephrine Given and Negative Test Dose Loss of Resistance Depth (cm): 6 Catheter depth at skin (cm): 12 Dressing: [place] Dressing Placed, Mastisol Used and Dressing reinforced with Tape Epidural P rovider Bolus (Indicate Dose Given): Total Ropivacaine 0.1% with Fentanyl 2mcg/ml Given from pump. (ml) Dose:: 10 mL Additives (Indicate Dose Given ): None Infusion Medication: Medication Infusion Began Medication Infusion: Ropivacaine 0.1% with Fentanyl 2mcg/ml Maintenance Infusion Rate (ml/hour): 10 PCEA Bolus Dose (ml): 5 Block Level: N/A Paresthesia: None Ultrasound: Used to loida site Number of Attempts (See previous attempts in note section): 1 Procedure Tolerated: No Complications Procedure Outcome: Successful Procedure Comment:: old CXR with spine curvature, US brought to loida back, likely spine rotation appreciated with US. On load of epidural, pump alarming occlusion, checked for kinks, none noted. catheter flushed and flushes with slight resistance. After the loading dose contractions where more tolerable with noted numbness in bilateral LE. Performed By: Thee Romero
[2022-12-03] MEDS: Ondansetron 4 MG/2 ML VIAL (19:30)
--- NOTE | 2022-12-03 21:40 | W.PM.OBNL1 ---
Date of service: 12/03/22 Time of Service: 21:40 Informed Consent Informed Consent: Induction of Labor (Pitocin at this point) and Other (Artificial rupture) Pelvic Exam Dilation: 6 Effacement (%): 90 station: -1 Position: OA Cervix Position: anterior Contractions Monitor Mode: External Contraction Frequency(min): 3-5 Contraction Duration(sec): 60 Fetus A Heart Rate Baseline: 150 Variability: Moderate (6-25 BPM) Categories: Category I Accelerations: Present Decelerations: None Assessment and Plan Assessment and plan (1) Encounter for induction of labor: Status: Acute Assessment and plan: Labor induction at term. Slow steady progress. Continue to increase Pitocin as needed. Good relief from epidural. Anticipate vaginal delivery. (2) Crohn's disease: Status: Chronic Objective Temp Pulse Resp BP Pulse Ox 98.6 F 105 H 18 116/66 99 12/03/22 17:15 12/03/22 21:39 12/03/22 18:13 12/03/22 21:38 12/03/22 21:35 Laboratory Results WBC Cancelled 12/02/22 19:43 RBC Cancelled 12/02/22 19:43 Hgb Cancelled 12/02/22 19:43 Hct Cancelled 12/02/22 19:43 MCV Cancelled 12/02/22 19:43 MCH Cancelled 12/02/22 19:43 MCHC Cancelled 12/02/22 19:43 RDW Cancelled 12/02/22 19:43 Plt Count Cancelled 12/02/22 19:43 MPV Cancelled 12/02/22 19:43 COVID-19 Source Nasal/Nares 12/02/22 18:20 SARS-CoV-2 (PCR) Negative (Negative) 12/02/22 18:20 Patient ABO/Rh Cancelled 12/02/22 19:43 Antibody Screen NEGATIVE 12/02/22 18:15 Subjective Interval history since last seen: Patient seen and examined. Comfortable with epidural. She has a sensation when she is having a contraction. Pitocin is currently at 6 milliunits. Results Hemoglobin/Hematocrit: Hgb Cancelled 12/02/22 19:43 Hct Cancelled 12/02/22 19:43 Abnormal Lab Findings: Abnormal Labs 12/02/22 18:15 RBC 3.87 L Hct 35.0 L MPV 11.4 H
[2022-12-04] VITALS (58 sets, daily range): BP systolic 117–138; BP diastolic 61–88; PULSE 75–122; RESP 18; TEMP 36.6–36.8; O2SAT 96–100
--- NOTE | 2022-12-04 00:05 | W.PM.OBNL1 ---
Date of service: 12/04/22 Time of Service: 00:05 Informed Consent Informed Consent: Induction of Labor (Pitocin at this point) and Other (Artificial rupture) Pelvic Exam Dilation: 8 Effacement (%): 60 station: -1 Cervix Position: anterior Comments: Moderate caput, slight cervical edema. Assessment and Plan Assessment and plan (1) Encounter for induction of labor: Status: Acute Assessment and plan: Pitocin at 9 milliunits, cervix is 8 cm, moderate caput with slight cervical edema. Category 1 tracing, appropriate labor. Will reassess in approximately 2 hours. If no change or descent, may explore alternate delivery route. (2) Crohn's disease: Status: Chronic Objective Temp Pulse Resp BP Pulse Ox 97.9 F 110 H 18 123/75 98 12/03/22 19:28 12/04/22 00:03 12/04/22 00:00 12/03/22 23:22 12/04/22 00:00 Laboratory Results WBC Cancelled 12/02/22 19:43 RBC Cancelled 12/02/22 19:43 Hgb Cancelled 12/02/22 19:43 Hct Cancelled 12/02/22 19:43 MCV Cancelled 12/02/22 19:43 MCH Cancelled 12/02/22 19:43 MCHC Cancelled 12/02/22 19:43 RDW Cancelled 12/02/22 19:43 Plt Count Cancelled 12/02/22 19:43 MPV Cancelled 12/02/22 19:43 COVID-19 Source Nasal/Nares 12/02/22 18:20 SARS-CoV-2 (PCR) Negative (Negative) 12/02/22 18:20 Patient ABO/Rh Cancelled 12/02/22 19:43 Antibody Screen NEGATIVE 12/02/22 18:15 Subjective Interval history since last seen: Patient seen and examined. Feeling some more lower pelvic pressure, no pain. Reactive, category 1 tracing, contractions every 2 minutes. Pitocin at 9 milliunits. Results Hemoglobin/Hematocrit: Hgb Cancelled 12/02/22 19:43 Hct Cancelled 12/02/22 19:43 Abnormal Lab Findings: Abnormal Labs 12/02/22 18:15 RBC 3.87 L Hct 35.0 L MPV 11.4 H
--- NOTE | 2022-12-04 01:39 | W.PM.OBNL1 ---
Date of service: 12/04/22 Time of Service: 01:39 Informed Consent Informed Consent: Induction of Labor (Pitocin at this point) and Other (Artificial rupture) Pelvic Exam Dilation: 10 Effacement (%): 100 station: +1 Cervix Position: anterior Contractions Monitor Mode: External Contraction Frequency(min): 2-3 Contraction Duration(sec): 60 Fetus A Heart Rate Baseline: 15 Presentation: Cephalic Variability: Moderate (6-25 BPM) Categories: Category I Assessment and Plan Assessment and plan (1) Encounter for induction of labor: Status: Acute Assessment and plan: For labor induction. Patient now complete. Begin second stage. Anticipate vaginal delivery. (2) Crohn's disease: Status: Chronic Objective Temp Pulse Resp BP Pulse Ox 97.9 F 109 H 18 122/78 100 12/03/22 19:28 12/04/22 01:35 12/04/22 00:00 12/04/22 01:32 12/04/22 01:35 Laboratory Results WBC Cancelled 12/02/22 19:43 RBC Cancelled 12/02/22 19:43 Hgb Cancelled 12/02/22 19:43 Hct Cancelled 12/02/22 19:43 MCV Cancelled 12/02/22 19:43 MCH Cancelled 12/02/22 19:43 MCHC Cancelled 12/02/22 19:43 RDW Cancelled 12/02/22 19:43 Plt Count Cancelled 12/02/22 19:43 MPV Cancelled 12/02/22 19:43 COVID-19 Source Nasal/Nares 12/02/22 18:20 SARS-CoV-2 (PCR) Negative (Negative) 12/02/22 18:20 Patient ABO/Rh Cancelled 12/02/22 19:43 Antibody Screen NEGATIVE 12/02/22 18:15 Subjective Interval history since last seen: Patient seen and examined. Doing well. Feeling pressured. Results Hemoglobin/Hematocrit: Hgb Cancelled 12/02/22 19:43 Hct Cancelled 12/02/22 19:43 Abnormal Lab Findings: Abnormal Labs 12/02/22 18:15 RBC 3.87 L Hct 35.0 L MPV 11.4 H
--- NOTE | 2022-12-04 03:16 | W.OBDELIVERY ---
Date of service: 12/04/22 Time of Service: 03:16 OB Labor/ Delivery Information Baby A Delivery Delivery Method: Spontaneaous Presentation: Vertex Cephalic Position: Vertex Vertex Position: Right Occipital Anterior Cord Description-Baby A: 3 Vessels Amniotic Fluid: Meconium Estimated Blood Loss: 200 Providers Doctor: Alexandra Dang Nurse: Freda Gallagher Nurse: Alisson Louise Labor/Delivery Information Number of Babies in Womb: 1 Steroids Given: None Reason Steroids Not Administered: N/A Group Beta Strep: Negative Antibiotics Administered: No Rubella Status: Nonimmune Blood Type: O+ Varicella Immunity: Immune Shoulder Dystocia: No Stages of Labor Onset of Labor Date: 12/02/22 Onset of Labor Time: 22:00 Complete Dilatation Date: 12/04/22 Complete Dilatation Time: 01:45 Labor - Stage 1 Duration: 27 hours and 45 minutes ROM Baby A: 12/03/22 ROM Baby A: 14:33 ROM Total Time- Baby A: [id number] Delivery Date-Baby A: 12/04/22 Delivery Time-Baby A: 02:33 Labor Stage 2 Duration: 48 minutes Placenta Delivery Date-Baby A: 12/04/22 Placenta Delivery Time-Baby A: 02:38 Labor-Stage 3 Duration: 5 minutes Total Length of Labor-Baby A: 28 hours and 33 minutes Placenta Status: Delivered Baby A Infant Gender: Male Gestational Status: Term (39-41.6 wks) Gestational Age in Weeks/Days: 40 Weeks and 6 Days Score-1 Minute Interval(Baby A) Heart Rate-1 minute: 100 BPM or Greater Respiratory Effort- 1 minute: Slow Respiration/Weak Cry Muscle Tone-1 minute: Active Movement Reflex Response-1 minute: Prompt Response Color-1 minute: Pallor or Cyanosis Total Score-1 minute: 7 Score-5 Minute Interval(Baby A) Heart Rate- 5 minute: 100 BPM or Greater Respiratory Effort-5 minute: Spontaneous/Strong Cry Muscle Tone-5 minute: Active Movement Reflex Response-5 minute: Prompt Response Color-5 minute: Bluish Hands or Feet Total Score- 5 minute: 9 Note: Patient progressed through a normal course of labor. She did have artificial rupture of membranes for meconium-stained fluid and was ruptured for approximately 12 hours. She received Pitocin augmentation and progressed to the point that she was completely dilated. She had adequate pain control with her epidural and with excellent maternal effort over the course of approximately 40 minutes she pushed the vertex over intact perineum. Shoulders followed with ease and there was no evidence of nuchal cord. Baby was handed to the waiting mother skin the skin. After cessation of cord pulsation and after approximately 90 seconds the cord was clamped x2 and cut. Placenta delivered spontaneously at 8 minutes and was noted to be intact. A cord blood sample has been obtained. On inspection there is noted to be a second-degree perineal laceration and a first-degree right labial laceration both of which were repaired with 3-0 Vicryl suture and noted to be hemostatic. Uterus was firm and below the umbilicus after delivery. Sponge lap and needle counts were correct x2. Mom is in stable condition with baby skin to skin and strong bonding noted.
[2022-12-04] MEDS: Ibuprofen 600 MG TAB PO ×4 (03:52→23:59)
[2022-12-04] MEDS: Acetaminophen 325 MG TAB 650 MG PO ×4 (03:52→23:58)
[2022-12-04] MEDS: Cetirizine 10 MG TAB PO (10:31)
[2022-12-04] MEDS: Sertraline 25 MG TAB PO (10:31)
[2022-12-04] MEDS: Hamamelis Leaf/Glycerin 100 EACH BOX PR (10:31)
[2022-12-04] MEDS: Docusate Sodium 100 MG CAP PO (15:17)
--- NOTE | 2022-12-04 16:48 | W.ANESPOSTOP ---
Postoperative Evaluation Date, Time and Location Date Performed: 12/04/22 Time Performed: 16:48 Patient Location: Obstetrics Vital Signs Most Recent Imported Vital Signs: Most Recent Vital Signs Temp Pulse Resp BP Pulse Ox 36.8 C 75 18 122/86 98 12/04/22 08:50 12/04/22 08:50 12/04/22 08:50 12/04/22 08:50 12/04/22 08:50 Pain Score Most Recent Pain Score: Most Recent Pain Score Pain Level [Abdomen] 2 12/04/22 06:00 Pain Level 4 12/04/22 15:17 Assessment Mental Status: Awake (Alert & Oriented to Patient Baseline) Airway and Respiratory Function: Patent airway with normal (patient baseline) respiratory exam Cardiovascular Function: Hemodynamically Stable Hydration Status: Adequately Hydrated Nausea & Vomiting: No Nausea or Vomiting Pain: Pain is tolerable per patient Peripheral Nerve Block: Patient did not receive a nerve block
[2022-12-05] MEDS: Acetaminophen 325 MG TAB 650 MG PO ×4 (05:52→23:32)
[2022-12-05] MEDS: Ibuprofen 600 MG TAB PO ×2 (05:52→18:35)
[2022-12-05] MEDS: Docusate Sodium 100 MG CAP PO (05:52)
[2022-12-05 06:04] LABS: HCT 29.4 % (36.0-46.0); HGB 9.5 g/dL (11.2-15.7); MCH 29.7 pg (27.0-33.0); MCHC 32.3 % (32.0-36.0); MCV 92 fL (80-95); Platelet Count 167 10^3/uL (130-400); RDW 14.2 % (11.7-14.6)
[2022-12-05 08:45] VITALS: BP 121/85; PULSE 78; RESP 18; TEMP 36.9
--- NOTE | 2022-12-05 09:49 | OBPPV_ITS ---
Date of service: 12/05/22 Time of Service: 09:49 Assessment and Plan Assessment and plan (1) (normal spontaneous vaginal delivery): Status: Acute Assessment and plan: day #1 status postnormal spontaneous vaginal delivery. Doing well. Breast-feeding without difficulty. (2) Crohn's disease: Status: Chronic Assessment and plan: Use medicated prior to discharge tomorrow. Continue her normal regime. Subjective Subjective Interval history: Patient seen and examined. Doing well this morning. No questions or concerns. circumcision requested Patient's Mood: Appropriate [place] baby status: Nursing well, Rooming in and Strong Bonding Observed Exam Physical Exam Vital signs: Temp Pulse Resp BP Pulse Ox 98.4 F 78 18 121/85 99 12/05/22 08:45 12/05/22 08:45 12/05/22 08:45 12/05/22 08:45 12/04/22 23:45 Vital Signs Reviewed: Yes Constitutional Constitutional: no acute distress HEENT Exam HEENT Exam: Normal Neck Exam Neck Exam: Normal Respiratory Exam Respiratory Exam: Normal Cardiovascular Exam Cardiovascular Exam: Normal Abdominal Exam Abdomen: Tender Fundal Exam Fundus: Below Umbilicus and Firm Extremities Exam Extremity Exam: Normal; negative Calf Tenderness or Edema Neurological Exam Neurological Exam: Normal Psychiatric Exam Psychiatric Exam: Normal Results Hemoglobin/Hematocrit: Hgb 9.5 g/dL (11.2-15.7) L 12/05/22 05:55 Hct 29.4 % (36.0-46.0) L 12/05/22 05:55 Abnormal Lab Findings: Abnormal Labs 12/02/22 12/05/22 18:15 05:55 RBC 3.87 L 3.20 L Hgb 9.5 L Hct 35.0 L 29.4 L MPV 11.4 H
[2022-12-05] MEDS: Sertraline 25 MG TAB PO (10:10)
[2022-12-05] MEDS: Cetirizine 10 MG TAB PO (10:10)
[2022-12-05 20:30] VITALS: BP 127/87; PULSE 87; RESP 16; TEMP 36.7
[2022-12-05 21:22] LABS: Abs Immature Grans 0.12 10^3/uL (0.0-0.06); Absolute Basophil Count 0.04 10^3/uL (0.0-0.2); Absolute Lymphocyte Count 2.17 10^3/uL (1.2-3.4); Absolute Neutrophil Count 6.86 10^3/uL (1.2-6.7); Basophils % 0.4; Eosinophils % 2.9; HGB 9.9 g/dL (11.2-15.7); Immature Grans % 1.2; Lymphocytes % 21.1; MCH 30.2 pg (27.0-33.0); MCHC 31.9 % (32.0-36.0); MCV 95 fL (80-95); MPV 10.8 fL (8.0-11.0); Monocytes % 7.8; Neutrophils % 66.6; Platelet Count 188 10^3/uL (130-400); RBC 3.28 10^6/uL (3.93-5.22); RDW 14.2 % (11.7-14.6); RDW-SD 49.4 fL; WBC 10.29 10^3/uL (4.4-10.8)
[2022-12-05 21:38] LABS: ALT 14 U/L (14-59); AST 29 U/L (15-37); Albumin 2.9 g/dL (3.4-5.0); Alkaline Phosphatase 142 U/L (46-116); BUN 7 mg/dL (7-18); Bilirubin, Total 0.1 mg/dL (0.2-1.0); CREATININE 0.8 mg/dL (0.55-1.02); Calcium 9.3 mg/dL (8.5-10.1); Chloride 103 mmol/L (98-107); Estimated GFR 106.11 (mL/min/1.73m2); Glucose 89 mg/dL (74-106); Potassium 3.7 mmol/L (3.5-5.1); Sodium 138 mmol/L (136-145); Total Protein 7.1 g/dL (6.4-8.2)
[2022-12-06] MEDS: Ibuprofen 600 MG TAB PO ×2 (00:41→08:10)
[2022-12-06 08:00] VITALS: BP 129/89; PULSE 69; RESP 12; TEMP 36.9
[2022-12-06] MEDS: Sertraline 25 MG TAB PO (08:06)
[2022-12-06] MEDS: Cetirizine 10 MG TAB PO (08:06)
[2022-12-06] MEDS: Acetaminophen 325 MG TAB 650 MG PO (08:11)
--- NOTE | 2022-12-06 08:14 | W.PM.OBPNV1 ---
Date of service: 12/06/22 Time of Service: 08:14 Assessment and Plan Assessment and plan (1) (normal spontaneous vaginal delivery): Status: Acute Assessment and plan: day #2 status postnormal spontaneous vaginal delivery after labor induction. Doing well. Anticipate discharge home. We will follow-up in the office in 2 and 6 weeks. Precautions were given. (2) Crohn's disease: Status: Chronic Assessment and plan: We will facilitate Remicade dose prior to discharge if possible. Subjective Subjective Interval history: Patient was seen and examined this morning. She has concerns about the potential of preeclampsia. Her blood pressures have been stable. Her urine output is adequate. She did have laboratory studies drawn last night which are normal. We do lengthy conversation today regarding signs and symptoms of preeclampsia in the period she does have some lower extremity edema which will get worse prior to getting better. All of her questions were answered to the best of my ability. We are anticipating him patient getting her Remicade dose prior to discharge and then discharged to home. [place] baby status: Doing well and Nursing well Exam Physical Exam Vital signs: Temp Pulse Resp BP Pulse Ox 98.1 F 87 16 127/87 99 12/05/22 20:30 12/05/22 20:30 12/05/22 20:30 12/05/22 20:30 12/04/22 23:45 Vital Signs Reviewed: Yes Constitutional Constitutional: no acute distress HEENT Exam HEENT Exam: Normal Neck Exam Neck Exam: Normal Respiratory Exam Respiratory Exam: Normal Cardiovascular Exam Cardiovascular Exam: Normal Abdominal Exam Comments: Soft and nontender Fundal Exam Fundus: Below Umbilicus and Firm Extremities Exam Extremity Exam: Normal and Edema (2+ bilateral); negative Calf Tenderness Skin Exam Skin Exam: Normal Neurological Exam Neurological Exam: Normal Psychiatric Exam Psychiatric Exam: Normal Results Hemoglobin/Hematocrit: Hgb 9.9 g/dL (11.2-15.7) L 12/05/22 21:12 Hct 31.0 % (36.0-46.0) L 12/05/22 21:12 Abnormal Lab Findings: Abnormal Labs 12/02/22 12/05/22 12/05/22 18:15 05:55 21:12 RBC 3.87 L 3.20 L Hgb 9.5 L Hct 35.0 L 29.4 L MCHC MPV 11.4 H Absolute Neutrophils Total Bilirubin 0.1 L Alkaline Phosphatase 142 H Albumin 2.9 L 12/05/22 21:12 RBC 3.28 L Hgb 9.9 L Hct 31.0 L MCHC 31.9 L MPV Absolute Neutrophils 6.86 H Total Bilirubin Alkaline Phosphatase Albumin
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
== END 2022-12-06 09:15 | disposition home or self-care (01) | DRG 806 ==
LOC: OBS 20:05 → BCD 21:22
PROVIDERS: Obstetrics & Gynecology; Admitting Provider Obstetrics & Gynecology; PCP Nurse Practitioner; Visit Provider Obstetrics & Gynecology
DX: O48.0 Post-term pregnancy (principal); K50.90 Crohn's disease, unspecified, without complications; Z37.0 Single live birth; O99.52 Diseases of the respiratory system complicating childbirth; J45.909 Unspecified asthma, uncomplicated; Z3A.40 40 weeks gestation of pregnancy; O99.02 Anemia complicating childbirth; D64.9 Anemia, unspecified; O99.62 Diseases of the digestive system complicating childbirth; K64.8 Other hemorrhoids; O77.0 Labor and delivery complicated by meconium in amniotic fluid; O70.1 Second degree perineal laceration during delivery; O99.344 Other mental disorders complicating childbirth; F41.9 Anxiety disorder, unspecified; O99.72 Diseases of the skin and subcutaneous tissue complicating childbirth; L40.9 Psoriasis, unspecified; O12.05 Gestational edema, complicating the puerperium; Z79.69 Long term (current) use of other immunomodulators and immunosuppressants
CPT/HCPCS: 36415; 80053; 85027; 86850; 86900; 86901; 87635; 85025; J2405

== ENCOUNTER 2022-12-06 08:39 | Outpatient (RCR) | payer MEDICAID, SELFPAY ==
[2022-12-06] VITALS (7 sets, daily range): BP systolic 122–143; BP diastolic 69–87; PULSE 67–86; RESP 16–18; TEMP 36.9–37.2; O2SAT 99–100
[2022-12-06] MEDS: methylPREDNISolone SUCC 40 MG VIAL IVP (11:18)
[2022-12-06] MEDS: Famotidine 20 MG/2 ML VIAL IVP (11:18)
[2022-12-06] MEDS: Normal Saline Flush 10 ML SYR IVP (11:19)
== END 2022-12-28 23:59 | disposition home or self-care (01) ==
LOC: INF 08:39
PROVIDERS: PCP Nurse Practitioner; Visit Provider Internal Medicine
DX: K50.90 Crohn's disease, unspecified, without complications (principal)
CPT/HCPCS: 96365; 96366; 96413; 96415

== ENCOUNTER 2023-01-18 02:51 | Outpatient (RCR) | payer MEDICAID, SELFPAY ==
[2022-12-29 00:23] VITALS: BP 138/69; PULSE 80; RESP 16; TEMP 37.1
[2023-01-18] VITALS (7 sets, daily range): BP systolic 94–103; BP diastolic 58–68; PULSE 64–94; RESP 16; TEMP 35.8–36.7; O2SAT 97–100
[2023-01-18] MEDS: Famotidine 20 MG/2 ML VIAL IVP (10:26)
[2023-01-18] MEDS: Normal Saline Flush 10 ML SYR IVP (10:26)
[2023-01-18] MEDS: methylPREDNISolone SUCC 40 MG VIAL IVP (10:26)
[2023-01-18 11:42] LABS: Abs Immature Grans 0.01 10^3/uL (0.0-0.06); Absolute Basophil Count 0.04 10^3/uL (0.0-0.2); Absolute Eosinophil Count 0.31 10^3/uL (0.0-0.7); Absolute Lymphocyte Count 1.54 10^3/uL (1.2-3.4); Basophils % 0.5; Eosinophils % 4.2; HCT 37.3 % (36.0-46.0); HGB 12.1 g/dL (11.2-15.7); Immature Grans % 0.1; Lymphocytes % 21.1; MCH 29.2 pg (27.0-33.0); MCHC 32.4 % (32.0-36.0); MCV 90 fL (80-95); MPV 11.2 fL (8.0-11.0); Monocytes % 6.8; Neutrophils % 67.3; Platelet Count 292 10^3/uL (130-400); RBC 4.15 10^6/uL (3.93-5.22); RDW 12.5 % (11.7-14.6); RDW-SD 41.4 fL
[2023-01-18 12:00] LABS: Iron 43 ug/dL (50-170); Total Iron Binding Capacity 282 ug/dL (250-450); Transferrin Sat 15 % (15-50)
[2023-01-18 12:10] LABS: ALT 16 U/L (14-59); AST 14 U/L (15-37); Albumin 3.9 g/dL (3.4-5.0); Alkaline Phosphatase 80 U/L (46-116); Bilirubin, Total 0.5 mg/dL (0.2-1.0); Ferritin 50 ng/mL (8-252); Total Protein 7.7 g/dL (6.4-8.2)
[2023-01-18 12:18] LABS: Vitamin D 25 Total 26.6 ng/mL (30-100)
[2023-01-18 12:25] LABS: Bilirubin, Direct 0.1 mg/dL (0.0-0.2)
[2023-01-18 12:26] LABS: C-Reactive Protein < 0.05 mg/dL (0.0-0.3)
[2023-01-21 15:29] LABS: TB Interpretation Negative (Negative); TB2 Ag minus Nil 0.01 IU/mL
[2023-01-24 23:36] LABS: Infliximab 19 mcg/mL (<=5.0)
== END 2023-01-27 23:59 | disposition home or self-care (01) ==
LOC: INF 02:51
PROVIDERS: PCP Nurse Practitioner; Visit Provider Internal Medicine
DX: K50.80 Crohn's disease of both small and large intestine without complications (principal)
CPT/HCPCS: 36415; 80076; 82306; 82397; 96365; 96366; 96413; 96415; 82728; 83540; 83550; 85025; 86140; 86480

== ENCOUNTER 2023-03-01 01:35 | Outpatient (RCR) | payer MEDICAID, SELFPAY ==
[2023-01-28 00:25] VITALS: BP 138/69; PULSE 80; RESP 16; TEMP 37.1
[2023-03-01] VITALS (7 sets, daily range): BP systolic 92–114; BP diastolic 60–74; PULSE 60–100; RESP 16–18; TEMP 36.1–36.8; O2SAT 97–100
[2023-03-01] MEDS: methylPREDNISolone SUCC 40 MG VIAL IVP (10:28)
[2023-03-01] MEDS: Famotidine 20 MG/2 ML VIAL IVP (10:29)
[2023-03-01 10:42] LABS: HCT 41.9 % (36.0-46.0); HGB 13.4 g/dL (11.2-15.7); MCH 28.7 pg (27.0-33.0); MCV 90 fL (80-95); MPV 11.1 fL (8.0-11.0); Platelet Count 271 10^3/uL (130-400); RBC 4.67 10^6/uL (3.93-5.22); RDW 12.8 % (11.7-14.6); RDW-SD 42.5 fL; WBC 8.84 10^3/uL (4.4-10.8)
[2023-03-01] MEDS: Acetaminophen 325 MG TAB (10:51)
[2023-03-01 11:23] LABS: ALT 13 U/L (14-59); AST 11 U/L (15-37); Albumin 4.1 g/dL (3.4-5.0); Alkaline Phosphatase 93 U/L (46-116); Bilirubin, Direct 0.1 mg/dL (0.0-0.2); Bilirubin, Total 0.5 mg/dL (0.2-1.0); C-Reactive Protein 0.49 mg/dL (0.0-0.3); Total Protein 8.3 g/dL (6.4-8.2)
[2023-03-01] MEDS: Normal Saline Flush 10 ML SYR IVP (12:19)
== END 2023-03-30 23:59 | disposition home or self-care (01) ==
LOC: INF 01:35
PROVIDERS: PCP Nurse Practitioner; Visit Provider Internal Medicine
DX: K50.80 Crohn's disease of both small and large intestine without complications (principal)
CPT/HCPCS: 80076; 85027; 96365; 96366; 96374; 86140; J2919; Q5103

== ENCOUNTER 2023-04-12 03:05 | Outpatient (RCR) | payer MEDICAID, SELFPAY ==
[2023-03-31 00:15] VITALS: BP 138/69; PULSE 80; RESP 16; TEMP 37.1
[2023-04-12] MEDS: Famotidine 20 MG/2 ML VIAL IVP (10:03)
[2023-04-12 10:05] VITALS: BP 100/66; PULSE 83; RESP 16; TEMP 36.5; O2SAT 99
[2023-04-12] MEDS: methylPREDNISolone SUCC 40 MG VIAL IVP (10:07)
[2023-04-12] MEDS: Normal Saline Flush 10 ML SYR IVP (10:08)
[2023-04-12 10:30] LABS: Abs Immature Grans 0.01 10^3/uL (0.0-0.06); Absolute Basophil Count 0.03 10^3/uL (0.0-0.2); Absolute Eosinophil Count 0.23 10^3/uL (0.0-0.7); Absolute Lymphocyte Count 1.64 10^3/uL (1.2-3.4); Absolute Monocyte Count 0.57 10^3/uL (0.1-0.8); Absolute Neutrophil Count 3.21 10^3/uL (1.2-6.7); Basophils % 0.5; HCT 38.6 % (36.0-46.0); HGB 12.4 g/dL (11.2-15.7); Immature Grans % 0.2; Lymphocytes % 28.8; MCH 28.1 pg (27.0-33.0); MCHC 32.1 % (32.0-36.0); MCV 87 fL (80-95); MPV 10.4 fL (8.0-11.0); Neutrophils % 56.5; Platelet Count 232 10^3/uL (130-400); RBC 4.42 10^6/uL (3.93-5.22); RDW 13.2 % (11.7-14.6); RDW-SD 41.8 fL; WBC 5.69 10^3/uL (4.4-10.8)
[2023-04-12 10:40] VITALS: BP 95/62; PULSE 56; RESP 46; TEMP 36.4; O2SAT 100
[2023-04-12 10:51] LABS: ALT 16 U/L (14-59); AST 14 U/L (15-37); Albumin 3.8 g/dL (3.4-5.0); Alkaline Phosphatase 78 U/L (46-116); Anion Gap 11.5 mmol/L (3-11); BUN 15 mg/dL (7-18); Bilirubin, Total 0.4 mg/dL (0.2-1.0); C-Reactive Protein < 0.50 mg/dL (<or=0.5); CO2 24.5 mmol/L (21.0-32.0); CREATININE 0.9 mg/dL (0.55-1.02); Calcium 9.1 mg/dL (8.5-10.1); Chloride 107 mmol/L (98-107); Estimated GFR 91.55 (mL/min/1.73m2); Glucose 109 mg/dL (74-106); Sodium 143 mmol/L (136-145); Total Protein 7.6 g/dL (6.4-8.2)
[2023-04-12 10:55] VITALS: BP 94/58; PULSE 71; RESP 16; TEMP 36.4; O2SAT 99
[2023-04-12 11:10] VITALS: BP 99/62; PULSE 69; RESP 16; TEMP 36.3; O2SAT 99
[2023-04-12 11:25] VITALS: BP 99/61; PULSE 67; RESP 18; TEMP 36.2; O2SAT 98
[2023-04-12 12:25] VITALS: BP 97/58; PULSE 82; RESP 16; TEMP 36.8; O2SAT 100
== END 2023-04-28 23:59 | disposition home or self-care (01) ==
LOC: INF 03:05
PROVIDERS: Internal Medicine Gastroenterology; PCP Nurse Practitioner; Visit Provider Internal Medicine
DX: K50.80 Crohn's disease of both small and large intestine without complications (principal)
CPT/HCPCS: 36415; 80053; 96365; 96366; 96374; 85025; 86140; J2919; Q5103

== ENCOUNTER 2023-04-25 04:10 | Outpatient (CLI) | payer MEDICAID, SELFPAY ==
[2023-04-25 17:16] LABS: TSH (W/Ref FT4) 1.05 uIU/mL (0.36-3.74)
[2023-04-25 17:22] LABS: Hemoglobin A1C 5.1 % (<5.7)
== END 2023-04-25 04:11 | disposition home or self-care (01) ==
LOC: LBO 04:10
PROVIDERS: Absent Provider Nurse Practitioner; PCP Nurse Practitioner; Visit Provider Nurse Practitioner
DX: R63.4 Abnormal weight loss (principal); F41.8 Other specified anxiety disorders; K50.90 Crohn's disease, unspecified, without complications; Z79.899 Other long term (current) drug therapy
CPT/HCPCS: 36415; 83036; 84443

== ENCOUNTER 2023-05-22 15:18 | Emergency (ER) | payer MEDICAID, SELFPAY ==
[2023-05-22 15:19] VITALS: BP 127/80; PULSE 91; RESP 18; TEMP 36.6; O2SAT 100
--- NOTE | 2023-05-22 15:45 | DI.RAD_ITS ---
Exam(s) XR FOOT RT COMPLETE EXAM: XR FOOT RT COMPLETE CLINICAL HISTORY: right lateral foot pain. TECHNIQUE: 2D digital imaging was performed. Three views. COMPARISON: No exams were available for comparison FINDINGS: BONES: No acute fracture is present. No bony destructive lesion is seen. JOINTS: No dislocation present. SOFT TISSUE: Lateral soft tissue swelling. IMPRESSION: No fracture is visible. DATA REPOSITORY: RADIATION DOSE DELIVERED:
[2023-05-22 17:03] VITALS: PULSE 67; RESP 16; O2SAT 100
--- NOTE | 2023-05-22 17:12 | DI.VRAD_ITS ---
PROCEDURE INFORMATION: Exam: XR Right Foot Exam date and time: 05/22/2023 4:04 PM Age: 23 years old Clinical indication: Other: Right lateral foot pain TECHNIQUE: Imaging protocol: Radiologic exam of the right foot. Views: 3 or more views. COMPARISON: No relevant prior studies available. FINDINGS: Bones/joints: No acute fracture identified. Soft tissues: No unusual soft tissue calcifications. IMPRESSION: 1. No acute fracture identified. Acute fractures can sometimes be subtle on initial radiographs. If symptoms persist or remain concerning, consider follow-up imaging in 7 days or alternative imaging modalities such as CT scan or MRI. Dictated and Authenticated by: Quin Pope MD. Ordering:GREGORIO Escobar MD
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
== END 2023-05-22 17:07 | disposition home or self-care (01) ==
PROVIDERS: Emergency Provider Physician Assistant; PCP Nurse Practitioner
DX: S92.354A Nondisplaced fracture of fifth metatarsal bone, right foot, initial encounter for closed fracture (principal); F17.290 Nicotine dependence, other tobacco product, uncomplicated; X50.1XXA Overexertion from prolonged static or awkward postures, initial encounter; Y93.01 Activity, walking, marching and hiking; Y92.018 Other place in single-family (private) house as the place of occurrence of the external cause
CPT/HCPCS: 99283; 73630

== ENCOUNTER 2023-05-26 05:01 | Outpatient (RCR) | payer MEDICAID, SELFPAY ==
[2023-04-29 00:20] VITALS: BP 138/69; PULSE 80; RESP 16; TEMP 37.1
[2023-05-26] VITALS (7 sets, daily range): BP systolic 96–114; BP diastolic 61–76; PULSE 67–91; RESP 14–16; TEMP 36.5–36.9; O2SAT 99–100
[2023-05-26] MEDS: methylPREDNISolone SUCC 40 MG VIAL IVP (10:04)
[2023-05-26] MEDS: Normal Saline Flush 10 ML SYR IVP (10:04)
[2023-05-26] MEDS: Famotidine 20 MG/2 ML VIAL IVP (10:12)
== END 2023-05-29 23:59 | disposition home or self-care (01) ==
LOC: INF 05:01
PROVIDERS: PCP Nurse Practitioner; Visit Provider Internal Medicine
DX: K50.90 Crohn's disease, unspecified, without complications (principal)
CPT/HCPCS: 96365; 96366; 96374; 96375; J2919; Q5103

== ENCOUNTER 2023-07-04 04:56 | Outpatient (RCR) | payer MEDICAID, SELFPAY ==
[2023-05-30 00:07] VITALS: BP 138/69; PULSE 80; RESP 16; TEMP 37.1
[2023-07-04] VITALS (7 sets, daily range): BP systolic 97–111; BP diastolic 61–74; PULSE 61–85; RESP 16–63; TEMP 36.2–36.6; O2SAT 99–100
[2023-07-04] MEDS: Normal Saline Flush 10 ML SYR IVP (09:09)
[2023-07-04] MEDS: methylPREDNISolone SUCC 40 MG VIAL IVP (09:09)
[2023-07-04] MEDS: Famotidine 20 MG/2 ML VIAL IVP (09:28)
== END 2023-07-29 23:59 | disposition home or self-care (01) ==
LOC: INF 04:56
PROVIDERS: PCP Nurse Practitioner; Visit Provider Internal Medicine
DX: K50.80 Crohn's disease of both small and large intestine without complications (principal)
CPT/HCPCS: 96365; 96366; J2919; Q5103

== ENCOUNTER 2023-08-08 14:15 | Emergency (ER) | payer MEDICAID, SELFPAY ==
[2023-08-08 14:18] VITALS: BP 125/80; PULSE 98; RESP 18; TEMP 37; O2SAT 100
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
--- NOTE | 2023-08-08 14:30 | DI.US_ITS ---
Exam(s) US HERNIA EXAM: US HERNIA CLINICAL HISTORY: L abdominal wall lump, ?hernia. TECHNIQUE: Ultrasound was performed using standard protocol. COMPARISON: None. FINDINGS: Dedicated ultrasound examination of the area of clinical concern on the anterior abdominal wall was p erformed. The overlying skin appears unremarkable. No erythema. Ultrasound reveals a subcutaneous cystic appearing finding with some internal echoes measuring approx imately 6 x 3 mm. Color flow imaging reveals that this is not hyperemic. This does not have the appearance of an anterior abdominal wall hernia. There is no connecting tract to the skin. IMPRESSION: There is a 6 x 3 mm cystic finding corresponding to her region of clinical interest. Although this f inding may have the appearance of a small abscess, it is not hyperemic nor exquisitely painful and th ere is no overlying erythema and there is no history of recent puncture wound in this region. The darlene johnson does inform me that she is on Remicade for Crohn's disease which does render her somewhat immun osuppressed. Appropriate follow-up here would be to repeat the ultrasound examination in a few weeks time, earlier if clinically indicated. DATA REPOSITORY:
[2023-08-08 14:41] LABS: Bilirubin Negative (Negative); Blood Negative (Negative); Clarity Clear (Clear); Glucose Negative (Negative); Ketones Negative (Negative); Leukocyte Esterase Negative (Negative); Nitrite Negative (Negative); Urobilinogen 0.2 mg/dL (Up to 0.2)
[2023-08-08 14:57] LABS: Abs Immature Grans 0.01 10^3/uL (0.0-0.06); Absolute Basophil Count 0.03 10^3/uL (0.0-0.2); Absolute Eosinophil Count 0.17 10^3/uL (0.0-0.7); Absolute Lymphocyte Count 1.59 10^3/uL (1.2-3.4); Absolute Monocyte Count 0.67 10^3/uL (0.1-0.8); Absolute Neutrophil Count 4.62 10^3/uL (1.2-6.7); Basophils % 0.4 %; Eosinophils % 2.4 %; HCT 38.8 % (36.0-46.0); HGB 12.6 g/dL (11.2-15.7); Immature Grans % 0.1 %; Lactate 0.7 mmol/L (0.6-1.4); Lymphocytes % 22.4 %; MCH 29.6 pg (27.0-33.0); MCHC 32.5 % (32.0-36.0); MCV 91 fL (80-95); MPV 10.2 fL (8.0-11.0); Monocytes % 9.4 %; Neutrophils % 65.3 %; Platelet Count 253 10^3/uL (130-400); RBC 4.25 10^6/uL (3.93-5.22); RDW 13.1 % (11.7-14.6); RDW-SD 43.1 fL; WBC 7.09 10^3/uL (4.4-10.8)
[2023-08-08 15:01] LABS: ESR 5 mm/hr (0-20)
[2023-08-08 15:19] LABS: ALT 17 U/L (14-59); AST 13 U/L (15-37); Albumin 4.2 g/dL (3.4-5.0); Alkaline Phosphatase 88 U/L (46-116); Anion Gap 6.9 mmol/L (3-11); BUN 15 mg/dL (7-18); Bilirubin, Total 0.4 mg/dL (0.2-1.0); C-Reactive Protein < 0.50 mg/dL (<or=0.5); CO2 30.1 mmol/L (21.0-32.0); CREATININE 0.7 mg/dL (0.55-1.02); Calcium 9.3 mg/dL (8.5-10.1); Chloride 105 mmol/L (98-107); Estimated GFR 123.78 (mL/min/1.73m2); Glucose 90 mg/dL (74-106); Lipase 37 U/L (16-77); Potassium 3.9 mmol/L (3.5-5.1); Sodium 142 mmol/L (136-145)
[2023-08-08 16:00] VITALS: BP 125/80; PULSE 90; RESP 18; TEMP 37; O2SAT 100
== END 2023-08-08 16:03 | disposition home or self-care (01) ==
PROVIDERS: Emergency Provider Physician Assistant; PCP Nurse Practitioner
DX: M79.89 Other specified soft tissue disorders (principal)
CPT/HCPCS: 76857; 80053; 83690; 85652; 99284; 81003; 83605; 83735; 85025; 86140; 99283

== ENCOUNTER 2023-08-22 02:51 | Outpatient (RCR) | payer MEDICAID, SELFPAY ==
[2023-07-30 00:16] VITALS: BP 138/69; PULSE 80; RESP 16; TEMP 37.1
[2023-08-22] VITALS (7 sets, daily range): BP systolic 94–106; BP diastolic 58–67; PULSE 64–80; RESP 16; TEMP 36.3–36.6; O2SAT 98–100
[2023-08-22] MEDS: Famotidine 20 MG/2 ML VIAL IVP (09:00)
[2023-08-22] MEDS: methylPREDNISolone SUCC 40 MG VIAL IVP (09:01)
[2023-08-22] MEDS: Normal Saline Flush 10 ML SYR IVP (09:01)
== END 2023-08-28 23:59 | disposition home or self-care (01) ==
LOC: INF 02:51
PROVIDERS: PCP Nurse Practitioner; Visit Provider Internal Medicine
DX: K50.80 Crohn's disease of both small and large intestine without complications (principal)
CPT/HCPCS: 96365; 96366; 96374; 96375; J2919; Q5103

== ENCOUNTER → 2023-09-05 02:46 | Outpatient (CLI) | payer MEDICAID, SELFPAY ==
--- NOTE | 2023-09-05 06:15 | DI.US_ITS ---
Exam(s) US SOFT TISS ABD WALL/LOW BACK EXAM: US SOFT TISS ABD WALL/LOW BACK CLINICAL HISTORY: 3-4 week f/u cyst LT ABD WALL, M79.89. TECHNIQUE: Ultrasound was performed using standard protocol. COMPARISON: No exams were available for comparison FINDINGS: Sonographic assessment utilizing grayscale and color Doppler imaging was performed and targeted to th e area of clinical concern. The previously noted cyst is no longer present. No new abnormalities. IMPRESSION: Resolution of previously noted small cyst in the left lower quadrant abdominal wall. DATA REPOSITORY:
== END ==
PROVIDERS: PCP Nurse Practitioner; Visit Provider Nurse Practitioner
DX: M79.89 Other specified soft tissue disorders (principal); L72.8 Other follicular cysts of the skin and subcutaneous tissue
CPT/HCPCS: 76705

== ENCOUNTER 2023-10-04 01:40 | Outpatient (RCR) | payer OTHER, SELFPAY ==
[2023-08-29 00:05] VITALS: BP 138/69; PULSE 80; RESP 16; TEMP 37.1
[2023-10-04] VITALS (7 sets, daily range): BP systolic 98–109; BP diastolic 61–72; PULSE 56–70; RESP 18–22; TEMP 36.4–36.7; O2SAT 97–100
[2023-10-04] MEDS: Normal Saline Flush 10 ML SYR IVP ×2 (09:03→09:36)
[2023-10-04] MEDS: Famotidine 20 MG/2 ML VIAL IVP (09:03)
[2023-10-04] MEDS: methylPREDNISolone SUCC 40 MG VIAL IVP (09:03)
== END 2023-10-29 23:59 | disposition home or self-care (01) ==
LOC: INF 01:40
PROVIDERS: PCP Nurse Practitioner; Visit Provider Internal Medicine
DX: K50.80 Crohn's disease of both small and large intestine without complications
CPT/HCPCS: 96365; 96366; 96374; 96375; J2919; Q5103

== ENCOUNTER 2023-11-14 04:07 | Outpatient (RCR) | payer OTHER, SELFPAY ==
[2023-10-30 00:18] VITALS: BP 138/69; PULSE 80; RESP 16; TEMP 37.1
[2023-11-14] VITALS (7 sets, daily range): BP systolic 98–101; BP diastolic 60–67; PULSE 59–72; RESP 16–17; TEMP 35.8–36.9; O2SAT 100
[2023-11-14] MEDS: methylPREDNISolone SUCC 40 MG VIAL IVP (08:46)
[2023-11-14] MEDS: Famotidine 20 MG/2 ML VIAL IVP (08:47)
[2023-11-14] MEDS: Normal Saline Flush 10 ML SYR IVP (08:47)
== END 2023-11-28 23:59 | disposition home or self-care (01) ==
LOC: INF 04:07
PROVIDERS: PCP Nurse Practitioner; Visit Provider Internal Medicine
DX: K50.80 Crohn's disease of both small and large intestine without complications (principal)
CPT/HCPCS: 96365; 96366; 96374; J2919; Q5103